=== PATIENT | male | born 1945 | race Caucasian/White ===

== ENCOUNTER 2018-08-11 07:16 | Inpatient (IN) | payer MEDICARE ==
[~2018-08-11] VITALS: Ht 188 cm; Wt 68.2 kg
[2018-08-11] MEDS ORDERED: NS IV 1000 ML 1,000 ML IV ONE ×2 (07:28→08:34)
[2018-08-11 07:35] LABS: BASOPHILS % (AUTO) 0 % (0-10); EOSINOPHILS % (AUTO) 0 % (0-10); HEMATOCRIT 42 % (40-54); LYMPHOCYTES # (AUTO) 1.2 X 10^3 (1.0-4.0); LYMPHOCYTES % (AUTO) 22 % (12-44); MEAN CORPUSCULAR HEMOGLOBIN 29 PG (25-34); MEAN CORPUSCULAR HGB CONC 34 G/DL (32-36); MEAN CORPUSCULAR VOLUME 87 FL (80-99); MEAN PLATELET VOLUME 11.7 FL (7.4-10.4); MONOCYTES # (AUTO) 0.3 X 10^3 (0.0-1.0); MONOCYTES % (AUTO) 6 % (0-12); NEUTROPHILS # (AUTO) 4.1 X 10^3 (1.8-7.8); NEUTROPHILS % (AUTO) 72 % (42-75); PLATELET COUNT 172 10^3/uL (130-400); RED CELL DISTRIBUTION WIDTH 14.8 % (10.0-14.5); WHITE BLOOD COUNT 5.6 10^3/uL (4.3-11.0)
[2018-08-11 07:55] LABS: ALANINE AMINOTRANSFERASE 9 U/L (0-55); ALKALINE PHOSPHATASE 33 U/L (40-136); BILIRUBIN,TOTAL 1.8 MG/DL (0.1-1.0); BUN/CREATININE RATIO 21; CALCIUM 10.2 MG/DL (8.5-10.1); CARBON DIOXIDE 15 MMOL/L (21-32); CHLORIDE 105 MMOL/L (98-107); CREATININE SERUM 1.28 MG/DL (0.60-1.30); GFR ESTIMATED 55; GLUCOSE 100 MG/DL (70-105); MAGNESIUM 2.2 MG/DL (1.8-2.4); POTASSIUM 4.2 MMOL/L (3.6-5.0); SODIUM 139 MMOL/L (135-145)
[2018-08-11 07:58] LABS: BILIRUBIN,URINE NEGATIVE (NEGATIVE); CLARITY,URINE CLEAR; COLOR,URINE YELLOW; GLUCOSE, URINE (UA) NEGATIVE (NEGATIVE); KETONES,URINE 4+ (NEGATIVE); LEUKOCYTE ESTERASE ,URINE 1+ (NEGATIVE); NITRITE,URINE NEGATIVE (NEGATIVE); PH,URINE 5 (5-9); PROTEIN,URINE 2+ (NEGATIVE); UROBILINOGEN,URINE 1 MG/DL (NORMAL)
--- NOTE | 2018-08-11 08:04 | ED General ---
General Chief Complaint: Altered Mental Status Stated Complaint: AMS Nursing Triage Note: ARRIVED VIA EMS. FOUND OUTSIDE HIS HOUSE IN [place]. STATES HE WALKED FROM [place] AND THOUGHT HE WAS IN [place]. PET WET AND COLD. WET CLOTHES IMMEDIATELY TAKEN OFF AND WARM BLANKET GIVEN. Nursing Sepsis Screen: No Definite Risk Source of Information: Patient Exam Limitations: No Limitations History of Present Illness Date Seen by Provider: Aug 11, 2018 Time Seen by Provider: 07:15 Initial Comments This 73-year-old gentleman presents to the emergency room via EMS after being found wandering around [place], [place] with a flashlight and stated he was looking for [address]. Someone contacted law enforcement who took him to the patient' s house. Orders were locked and nobody would answer the door. Law enforcement called EMS to bring him to the emergency room. It is rainy today and the patient's clothes are soaked. He is cool and shivering. He is alert but disoriented. He is conversational. He told EMS he walked from [place] and he believes he is in [place]. He reports he lives with his Josiane. He states she is trained to not answer the phone or come to the door without him. Patient reports only prostate problems for health history. He denies taking medications. His filling history shows finasteride and Flomax. He knows his date of but is disoriented to age, place. Patient's tympanic temperatures were 95.6 and 96.0. He is being given warm fluids and wrapped in warm blankets. His cold wet clothing was removed. His underwear was very darkly soiled with urine. He denies any symptoms except for his hips hurting because of all the walking he did. Allergies and Home Medications Allergies Coded Allergies: No Known Drug Allergies (Unverified , 08/11/18) Patient Home Medication List Home Medication List Reviewed: Yes Review of Systems Review of Systems Constitutional: see HPI EENTM: no symptoms reported Respiratory: no symptoms reported Cardiovascular: no symptoms reported Gastrointestinal: no symptoms reported Genitourinary: see HPI Musculoskeletal: no symptoms reported Skin: no symptoms reported Psychiatric/Neurological: See HPI Hematologic/Lymphatic: No Symptoms Reported Immunological/Allergic: no symptoms reported Past Swwenva-Uxlxtz-Rxgxns Hx Past Med/Social Hx: Reviewed and Corrections made Patient Social History Alcohol Use: Denies Use Recent Foreign Travel: No Contact w/Someone Who Travel: No Recent Infectious Disease Expo: No Past Medical History Surgeries: No Respiratory: No (none reported) Cardiac: No Neurological: No Reproductive Disorders: No Genitourinary: Yes Prostate Problems Gastrointestinal: No Musculoskeletal: No Endocrine: No HEENT: No Cancer: No Psychosocial: No Integumentary: No Physical Exam Vital Signs Vital Signs - First Documented 08/11/18 07:36 Temp 95.6 Pulse 90 Resp 16 B/P (MAP) 177/86 (116) Pulse Ox 99 O2 Delivery Room Air Capillary Refill : Less Than 3 Seconds Height, Weight, BMI Height: 5'10.00" Weight: 160lbs. oz. 72.665052qd; BMI Method:Estimated General Appearance: No Apparent Distress, WD/WN, Other (disheveled with soiled and wet clothing) HEENT: PERRL/EOMI, Normal ENT Inspection Neck: Normal Inspection, Non Tender Respiratory: Lungs Clear, Normal Breath Sounds, No Accessory Muscle Use, No Respiratory Distress Cardiovascular: Regular Rate, Rhythm, No Edema, No Murmur Gastrointestinal: Normal Bowel Sounds, Non Tender, Soft Back: Normal Inspection Extremity: Normal Inspection, No Pedal Edema Neurologic/Psychiatric: Alert, No Motor/Sensory Deficits, Normal Mood/Affect, wide area network administrator II-XII Norm as Tested, Other (disoriented and confused, improving with time) Skin: Normal Color, Warm/Dry Progress/Results/Core Measures Suspected Sepsis Recent Fever Within 48 Hours: No Infection Criteria Present: None New/Unexplained Altered Menta: No Sepsis Screen: No Definite Risk SIRS Temperature:95.6 Pulse: 90 Respiratory Rate: 16 Laboratory Tests 08/11/18 07:25: White Blood Count 5.6 Blood Pressure 177 /86 Mean: 116 Laboratory Tests 08/11/18 07:25: Creatinine 1.28, Platelet Count 172, Total Bilirubin 1.8H Results/Orders Lab Results Laboratory Tests Test 08/11/18 07:25 08/11/18 07:36 08/11/18 07:54 Range/Units White Blood Count 5.6 4.3-11.0 10^3/uL Red Blood Count 4.80 4.35-5.85 10^6/uL Hemoglobin 14.0 13.3-17.7 G/DL Hematocrit 42 40-54 % Mean Corpuscular Volume 87 80-99 FL Mean Corpuscular Hemoglobin 29 25-34 PG Mean Corpuscular Hemoglobin Concent 34 32-36 G/DL Red Cell Distribution Width 14.8 H 10.0-14.5 % Platelet Count 172 130-400 10^3/uL Mean Platelet Volume 11.7 H 7.4-10.4 FL Neutrophils (%) (Auto) 72 42-75 % Lymphocytes (%) (Auto) 22 12-44 % Monocytes (%) (Auto) 6 0-12 % Eosinophils (%) (Auto) 0 0-10 % Basophils (%) (Auto) 0 0-10 % Neutrophils # (Auto) 4.1 1.8-7.8 X 10^3 Lymphocytes # (Auto) 1.2 1.0-4.0 X 10^3 Monocytes # (Auto) 0.3 0.0-1.0 X 10^3 Eosinophils # (Auto) 0.0 0.0-0.3 10^3/uL Basophils # (Auto) 0.0 0.0-0.1 10^3/uL Sodium Level 139 135-145 MMOL/L Potassium Level 4.2 3.6-5.0 MMOL/L Chloride Level 105 98-107 MMOL/L Carbon Dioxide Level 15 L 21-32 MMOL/L Anion Gap 19 H 5-14 MMOL/L Blood Urea Nitrogen 27 H 7-18 MG/DL Creatinine 1.28 0.60-1.30 MG/DL Estimat Glomerular Filtration Rate 55 BUN/Creatinine Ratio 21 Glucose Level 100 70-105 MG/DL Calcium Level 10.2 H 8.5-10.1 MG/DL Corrected Calcium 10.2 H 8.5-10.1 MG/DL Magnesium Level 2.2 1.8-2.4 MG/DL Total Bilirubin 1.8 H 0.1-1.0 MG/DL Aspartate Amino Transf (AST/SGOT) 22 5-34 U/L Alanine Aminotransferase (ALT/SGPT) 9 0-55 U/L Alkaline Phosphatase 33 L 40-136 U/L Total Protein 8.0 6.4-8.2 GM/DL Albumin 4.0 3.2-4.5 GM/DL TSH [place] Testing 2.28 0.35-4.94 UIU/ML Serum Alcohol < 10 <10 MG/DL Urine Color YELLOW Urine Clarity CLEAR Urine pH 5 5-9 Urine Specific Nora 1.030 H 1.016-1.022 Urine Protein 2+ H NEGATIVE Urine Glucose (UA) NEGATIVE NEGATIVE Urine Ketones 4+ H NEGATIVE Urine Nitrite NEGATIVE NEGATIVE Urine Bilirubin NEGATIVE NEGATIVE Urine Urobilinogen 1 NORMAL MG/DL Urine Leukocyte Esterase 1+ H NEGATIVE Urine RBC (Auto) 3+ H NEGATIVE Urine RBC 5-10 H /HPF Urine WBC 5-10 H /HPF Urine Crystals NONE /LPF Urine Amorphous Sediment FEW BLAYNE URATES H /LPF Urine Bacteria MODERATE H /HPF Urine Casts NONE /LPF Urine Mucus LARGE H /LPF Urine Culture Indicated YES Urine Opiates Screen NEGATIVE NEGATIVE Urine Oxycodone Screen NEGATIVE NEGATIVE Urine Methadone Screen NEGATIVE NEGATIVE Urine Propoxyphene Screen NEGATIVE NEGATIVE Urine Barbiturates Screen NEGATIVE NEGATIVE Ur Tricyclic Antidepressants Screen NEGATIVE NEGATIVE Urine Phencyclidine Screen NEGATIVE NEGATIVE Urine Amphetamines Screen NEGATIVE NEGATIVE Urine Methamphetamines Screen NEGATIVE NEGATIVE Urine Benzodiazepines Screen NEGATIVE NEGATIVE Urine Cocaine Screen NEGATIVE NEGATIVE Urine Cannabinoids Screen NEGATIVE NEGATIVE Ammonia 17 11-32 UMOL/L Total Creatine Kinase 166 30-200 U/L My Orders Orders - DAMARI SAMAYOA MD Alcohol (08/11/18 07:28) Cbc With Automated Diff (08/11/18 07:28) Comprehensive Metabolic Panel (08/11/18 07:28) Drug Screen Stat (Urine) (08/11/18 07:28) Magnesium (08/11/18 07:28) Ua Culture If Indicated (08/11/18 07:28) Saline Lock/Iv-Start (08/11/18 07:28) Ns Iv 1000 Ml (Sodium Chloride 0.9%) (08/11/18 07:28) Thyroid Analyzer (08/11/18 07:33) Creatine Kinase (08/11/18 08:07) Ammonia (08/11/18 08:09) Urine Culture (08/11/18 07:36) Ceftriaxone For Iv Use (Rocephin For I (08/11/18 08:30) Ns Iv 500 Ml (Sodium Chloride 0.9%) (08/11/18 08:22) Saline Lock/Iv-Start (08/11/18 08:34) Ns Iv 1000 Ml (Sodium Chloride 0.9%) (08/11/18 08:34) Ct Head Wo (08/11/18 10:48) Medications Given in ED Current Medications Medications Dose Ordered Sig/Radha Route Start Time Stop Time Status Last Admin Dose Admin Ceftriaxone Sodium 1000 mg/ Sterile Water 10 ml @ 200 mls/hr ONCE ONCE IV 08/11/18 08:30 08/11/18 08:32 DC 08/11/18 08:37 200 MLS/HR Sodium Chloride 1,000 ml @ 0 mls/hr Q0M ONCE IV 08/11/18 07:28 08/11/18 07:30 DC 08/11/18 07:37 1,000 MLS/HR Sodium Chloride 1,000 ml @ 0 mls/hr Q0M ONCE IV 08/11/18 08:34 08/11/18 08:36 DC 08/11/18 08:37 1,000 MLS/HR Vital Signs/I&O 08/11/18 07:36 Temp 95.6 Pulse 90 Resp 16 B/P (MAP) 177/86 (116) Pulse Ox 99 O2 Delivery Room Air Capillary Refill : Less Than 3 Seconds Blood Pressure Mean: 116 Progress Note #1: Time: 08:24 Progress Note Patient was found to have a urinary tract infection and 4+ ketones in his urine. He received about 400 mL of saline by EMS. A liter of warm saline was administered in the ER. We will add another 500 mL due to the high ketones in his urine. Rocephin will be given for urinary tract infection identified on urinalysis. We have contacted a family friend who is going to come visit with the patient. Patient seems to have more brisk mentation now after being warmed and hydrated. Patient also states he sees Dr. Bean and takes 2 medications for his prostate. Progress Note #2: Time: 11:54 Progress Note Patient received Rocephin for treatment of urinary tract infection. Patient added to his history that he recently has fallen over his cats. CT of the head was added to his workup. No acute injuries were found on CT. Patient's friends and police went to the home and found patient's there. The home is in poor condition. They recommended the come to the hospital to be evaluated but she declined. Patient is still confused and not back to baseline according to his friends. Case has been discussed with Dr. Gonsalves who presented to the emergency room to assess the patient. He will be admitted with continued hydration and treatment for urinary tract infection and a psychiatric social worker consult. Temperature improved to 99. Diagnostic Imaging Diagonstic Imaging: CT Plain Films/CT/US/NM/MRI: head Comments CT head viewed by me and report reviewed. See report below: NAME: SHABANA MCGOVERN [facility] REC#: [id number] PT STATUS: REG ER : 1945 PHYSICIAN: DAMARI SAMAYOA MD ADMIT DATE: 08/11/18/ER Draft Date of Exam:08/11/18 CT HEAD WO PROCEDURE: CT head without contrast. TECHNIQUE: Multiple contiguous axial images were obtained through the brain without the use of intravenous contrast. Auto Exposure Controls were utilized during the CT exam to meet ALARA standards for radiation dose reduction. INDICATION: Altered level of consciousness and altered mental status. No comparison available. FINDINGS: There are prominent extra-axial spaces which are of low density and appears reflective of the subarachnoid space secondary to volume loss. There are no CT findings of acute or hyperdense intracranial hemorrhage. There is no mass effect or shift. There is no hydrocephalus. 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 There is no abnormal low density within the basal ganglia. There is no territorial loss of delgado-white differentiation. Posterior fossa demonstrates volume loss and is otherwise unremarkable. The basilar cisterns are patent. The mastoid air cells appear clear. There is chronic appearing and partially calcified opacification of the right maxillary sinus. The orbital contents unremarkable. There is no acute or suspicious calvarial abnormality. IMPRESSION: 1. Global volume loss without CT evidence of an acute intracranial abnormality. 2. Chronic appearing right maxillary sinusitis. Dictated on workstation # [id number] Dict: 08/11/18 1115 Trans: 08/11/18 1131 [id number] Interpreted by: ALEKSANDER FARIAS MD Departure Communication (Admissions) Time/Spoke to Admitting Phy: 10:45 Dr. Gonsalves Impression Primary Impression: Confusion Additional Impressions: Dehydration Hypothermia Qualified Codes: T68.XXXA - Hypothermia, initial encounter Urinary tract infection Qualified Codes: N39.0 - Urinary tract infection, site not specified Disposition: ADMITTED INPATIENT Condition: Improved Admissions Decision to Admit Reason: Admit from ER (General) Decision to Admit/Date: Aug 11, 2018 Time/Decision to Admit Time: 10:45 Departure-Patient Inst. Referrals: NO,LOCAL PHYSICIAN (PCP/Family) Primary Care Physician DAMARI SAMAYOA MD Aug 11, 2018 08:04
[2018-08-11 08:10] LABS: AMPHETAMINE SCREEN, URINE NEGATIVE (NEGATIVE); BARBITURATE SCREEN URINE NEGATIVE (NEGATIVE); BENZODIAZEPINES SCREEN URINE NEGATIVE (NEGATIVE); CANNABINOID SCREEN, URINE NEGATIVE (NEGATIVE); COCAINE SCREEN URINE NEGATIVE (NEGATIVE); METHADONE STAT NEGATIVE (NEGATIVE); METHAMPHETAMINE SCREEN URINE S NEGATIVE (NEGATIVE); OPIATE SCREEN URINE NEGATIVE (NEGATIVE); OXYCODONE STAT NEGATIVE (NEGATIVE); PROPOXYPHENE STAT NEGATIVE (NEGATIVE); TRICYCLIC ANTIDEPRESSANTS SCRE NEGATIVE (NEGATIVE)
--- NOTE | 2018-08-11 08:10 | NUR ---
PT STATES HE HAS TWO CHILDREN BUT UNALBE TO PROVIDE A NAME OR NUMBER. ALSO TOLD ME HIS LIVES AT THE HOME. ATTEMPT TO CALL THE NUMBER LISTED FOR HIS ET PHONE HAS BEEN DISCONNECTED. CONTACTED A MAN BY THE NAME OF ELIZABETH PANCHO WHO STATES HE KNOWS THE PT AND WILL COME TO THE ER. CONTACTED THE [employer] WHO STATES PATIENTS IS . THEY HAVE THE NAME OV ADRIANA MCGOVERN WHO IS HIS DAUGHTER IN [place] AND THEY HAVE CONTACTED [place] [employer] WHO IS TRYING TO LOCATE THE DAUGHTER.
[2018-08-11 08:14] LABS: AMORPHOUS SEDIMENT,UR FEW AMOR URATES /LPF; BACTERIA,URINE MODERATE /HPF
[2018-08-11] MEDS ORDERED: NS IV 500 ML 500 ML IV ONE (08:22)
[2018-08-11 08:25] LABS: AMMONIA 17 UMOL/L (11-32); CREATINE KINASE 166 U/L (30-200)
[2018-08-11] MEDS ORDERED: cefTRIAXone FOR IV USE 1,000 MG in WATER (STERILE) FOR INJECTION 10 ML IV ONE (08:30)
--- NOTE | 2018-08-11 08:30 | NUR ---
ELIZABETH DELEON AND HIS ARE HERE. THEY STATE THAT THE PT'S IS NOT UNLESS SHE JUST RECENTLY . [facility] CONTACTED AGAIN AND NOTIFIED OF THIS INFORMATION. ASKED THEM AGAIN TO DO A WELL PERSON CHECK ON THE AT THE HOME.
--- NOTE | 2018-08-11 09:20 | NUR ---
BRIANA BAILEYT HERE.
--- NOTE | 2018-08-11 09:35 | NUR ---
FRIENDS LEFT AND FOLLOWED POLICE TO THE PT'S HOME.
--- NOTE | 2018-08-11 10:11 | NUR ---
DR IN ROOM WITH PT AT THIS TIME.
--- NOTE | 2018-08-11 10:35 | NUR ---
DR NEELY HERE TO SEE PT.
--- NOTE | 2018-08-11 10:55 | History & Physical-Hospitalist ---
History of Present Illness HPI/Chief Complaint Pt is a 73yoCM who presented to the ER via EMS after being found wondering outside in the rain. Per report from ER doctor he was very confused when he arrived and unable to give much history but has been clearing. His story is still somewhat limited but he was able to tell me that he was out in the rain for hours. He is unsure why. He believes he was out there for hours. He was reported to police by a stranger for wandering with a flashlight. He believes he 's fallen 5-6x time tripping over his cats as well. He doesn't think he hurt his head when he fell. He is otherwise unable to tell me any other pertinent history. Family states he is still not back to baseline. Source: patient Date Seen 08/11/18 Time Seen by a Provider: 10:47 Attending Physician Mayda Gonsalves PCP No,Local Physician Referring Physician Date of Admission Home Medications & Allergies Home Medications Reviewed patient Home Medication Reconciliation performed by pharmacy medication reconciliations planning technician and/or nursing. Patients Allergies have been reviewed. Allergies Allergies Coded Allergies No Known Drug Allergies (Unverified08/11/18) Past Cqlqawz-Ufents-Vlksny Hx Past Med/Social Hx: Reviewed Nursing Past Med/Soc Hx Patient Social History Marrital Status: Alcohol Use: Past History Recreational Drug Use: No Smoking Status: Never a Smoker Recent Foreign Travel: No Contact w/other who traveled: No Recent Infectious Disease Expo: No Past Medical History Surgeries: Orthopedic Genitourinary: Prostate Problems Family History Reviewed Nursing Family Hx No Pertinent Family Hx Review of Systems ROS-Unable to Obtain: Confusion Constitutional: see HPI Physical Exam Physical Exam Vital Signs Vital Signs - First Documented 08/11/18 08/11/18 07:36 13:26 Temp 95.6 Pulse 90 Resp 16 B/P (MAP) 177/86 (116) Pulse Ox 99 O2 Delivery Room Air FiO2 21 Capillary Refill : Less Than 3 Seconds Height, Weight, BMI Height: 5'10.00" Weight: 160lbs. oz. 72.399781gs; BMI Method:Estimated General Appearance: No Apparent Distress, Chronically ill HEENT: PERRL/EOMI, Moist Mucous Membranes; No Scleral Icterus (L), No Scleral Icterus (R) Neck: Supple Respiratory: Lungs Clear, No Accessory Muscle Use, No Respiratory Distress Cardiovascular: Regular Rate, Rhythm, No JVD, No Murmur Gastrointestinal: Normal Bowel Sounds, Non Tender, Soft Extremity: Normal Capillary Refill, No Calf Tenderness, No Pedal Edema Neurologic/Psychiatric: Alert, Other (oriented to person and place only) Skin: Normal Color, Warm/Dry; No Ecchymosis Results Results/Procedures Labs Laboratory Tests 08/12/18 03:05 Patient resulted labs reviewed. Imaging: Reviewed Imaging Report Assessment/Plan Admission Diagnosis Altered Mental Status Admission Status: Inpatient Order (span 2 midnights) Reason for Inpatient Admission: need for iv abx, monitoring for confusion Diagnosis/Problems Diagnosis/Problems (1) Urinary tract infection Status: Acute Assessment & Plan: Await cultures No sepsis criteria met lactic acid pending Qualifiers: Urinary tract infection type: site unspecified Hematuria presence: without hematuria Qualified Codes: N39.0 - Urinary tract infection, site not specified (2) Confusion Status: Acute Assessment & Plan: Unsure of baseline Oriented to person and place currently but not the last 24 hours Monitor in ICU (3) Falls Status: Acute Assessment & Plan: 5-6 falls per patient On no blood thinners CT head shows no acute process Qualifiers: Encounter type: initial encounter Qualified Codes: W19.XXXA - Unspecified fall, initial encounter (4) Hypothermia Status: Resolved Assessment & Plan: Resolved now Likely due to environmental exposure Qualifiers: Encounter type: initial encounter Qualified Codes: T68.XXXA - Hypothermia , initial encounter Resolution Date/Time: 08/12/18 @ 09:18 MAYDA GONSALVES MD Aug 11, 2018 10:55
[2018-08-11] MEDS ORDERED: MILK OF MAGNESIA 400 MG/5 ML 30 ML UDC PO PRN (11:15)
[2018-08-11] MEDS ORDERED: ACETAMINOPHEN 325 MG TABLET PO PRN (11:15)
[2018-08-11] MEDS ORDERED: ONDANSETRON 4 MG/2 ML (SDV) Z0FRAN IV PRN (11:15)
[2018-08-11] MEDS ORDERED: ANTACID SUSP 30 ML UDC (MYLANTA) PO PRN (11:15)
[2018-08-11] MEDS ORDERED: MELATONIN 3 MG TABLET PO PRN (11:15)
[2018-08-11] MEDS ORDERED: BENZONATATE 100 MG (TESSALON) CAPSULE PO PRN (11:15)
--- NOTE | 2018-08-11 11:32 | Diagnostic Imaging Report ---
PROCEDURE: CT head without contrast. TECHNIQUE: Multiple contiguous axial images were obtained through the brain without the use of intravenous contrast. Auto Exposure Controls were utilized during the CT exam to meet ALARA standards for radiation dose reduction. INDICATION: Altered level of consciousness and altered mental status. No comparison available. FINDINGS: There are prominent extra-axial spaces which are of low density and appears reflective of the subarachnoid space secondary to volume loss. There are no CT findings of acute or hyperdense intracranial hemorrhage. There is no mass effect or shift. There is no hydrocephalus. 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 There is no abnormal low density within the basal ganglia. There is no territorial loss of delgado-white differentiation. Posterior fossa demonstrates volume loss and is otherwise unremarkable. The basilar cisterns are patent. The mastoid air cells appear clear. There is chronic appearing and partially calcified opacification of the right maxillary sinus. The orbital contents unremarkable. There is no acute or suspicious calvarial abnormality. IMPRESSION: 1. Global volume loss without CT evidence of an acute intracranial abnormality. 2. Chronic appearing right maxillary sinusitis. Dictated by: Dictated on workstation # [id number]
--- NOTE | 2018-08-11 11:44 | NUR ---
REPORT AND CARE TURNED OVER TO DOUG KINGSLEY.
[2018-08-11 12:50] VITALS: BP 175/81
--- NOTE | 2018-08-11 12:50 | NUR ---
SHABANA MCGOVERN admitted to room CU12-1, with an admitting diagnosis of UTI,AMS, on 08/11/18 from ER via [facility], accompanied by STAFF.SHABANA MCGOVERN introduced to surroundings, call light, bed controls, phone, TV, temperature control, lights, meal times, smoking policy, visitor policy, side rail policy, bathrooms and showers. Patient Rights given to patient in the handbook. SHABANA MCGOVERN verbalizes understanding that [facility] is not responsible for the loss or damage to any personal effects or valuables that are kept in the patients posession during their hospitalization. The following Patient Care Plans were discussed with the PT: Discharge Planning, PAIN,INFECTION, and KNOWLEDGE DEFICIT:UTI. SHABANA MCGOVERN verbalizes understanding of Interdisciplinary Patient Education. Patient and family were informed about the Rapid Response Team and its purpose.
[2018-08-11 13:00] VITALS: BP 175/78
[2018-08-11] MEDS ORDERED: CATHETER FLUSH 10 ML SYR IV PRN (13:00)
[2018-08-11] MEDS: NS IV 1000 ML 1,000 ML IV SCH ×2 (13:21→21:04)
[2018-08-11 13:26] VITALS: BP 177/86
[2018-08-11] MEDS ORDERED: FLU QUADRIvalent (5+ YOA) 2018-2019 (AFLURIA) 0.5 ML IM ONE (13:30)
[2018-08-11] MEDS ORDERED: RT-ALBUTEROL/IPRATROPIUM 3 ML (DUONEB) VIAL INH PRN (13:45)
[2018-08-11 16:00] VITALS: BP 146/80
[2018-08-11 19:30] VITALS: BP 147/78
[2018-08-11] MEDS ORDERED: NITROGLYCERIN 2% OINT 1 GM UNIT DOSE PACKET TOP PRN (20:45)
[2018-08-11 23:30] VITALS: BP 165/78
[2018-08-12 03:15] VITALS: BP 130/78
[2018-08-12 03:43] LABS: HEMOGLOBIN 11.5 G/DL (13.3-17.7); MEAN PLATELET VOLUME 12.1 FL (7.4-10.4); RED CELL DISTRIBUTION WIDTH 14.6 % (10.0-14.5); WHITE BLOOD COUNT 4.6 10^3/uL (4.3-11.0)
[2018-08-12 04:03] LABS: BUN/CREATININE RATIO 26; CALCIUM 8.6 MG/DL (8.5-10.1); CARBON DIOXIDE 20 MMOL/L (21-32); CHLORIDE 111 MMOL/L (98-107); CREATININE SERUM 0.84 MG/DL (0.60-1.30); GFR ESTIMATED > 60; GLUCOSE 95 MG/DL (70-105); POTASSIUM 3.7 MMOL/L (3.6-5.0); SODIUM 139 MMOL/L (135-145)
--- NOTE | 2018-08-12 05:55 | Pulmonary Consultation ---
History of Present Illness History of Present Illness Date of Consultation 08/12/18 05:52 Date of Admission Allergies and Home Medications Allergies Coded Allergies: No Known Drug Allergies (Unverified , 08/11/18) Home Medications Unable to Obtain Active Prescriptions or Reported Meds Past Bpipmwe-Mbiecx-Wciysp Hx Past Med/Social Hx: Reviewed and Corrections made Patient Social History Alcohol Use: Denies Use Recreational Drug Use: No Smoking Status: Never a Smoker Past Medical History Surgeries: No Orthopedic Respiratory: No (none reported) Cardiac: No Neurological: No Reproductive Disorders: No Genitourinary: Yes Prostate Problems Gastrointestinal: No Musculoskeletal: No Endocrine: No HEENT: No Cancer: No Psychosocial: No Integumentary: No Family Medical History Reviewed Nursing Family Hx Osteoporosis 19 MOTHER No Pertinent Family Hx Sepsis Event Evaluation Height, Weight, BMI Height: 6'2.00" Weight: 150lbs. 7.0oz. 68.155161sb; 19.3 BMI Method:Estimated Exam Exam Vital Signs Date Time Temp Pulse Resp B/P (MAP) Pulse Ox O2 Delivery O2 Flow Rate FiO2 08/12/18 03:15 99.2 48 16 130/78 (95) 98 Room Air 08/12/18 01:00 55 08/11/18 23:30 99.0 64 20 165/78 (107) 98 Room Air 08/11/18 19:35 100 Room Air 08/11/18 19:30 99.8 68 16 147/78 (101) 100 Room Air 08/11/18 19:18 Room Air 08/11/18 19:00 69 08/11/18 16:19 77 08/11/18 16:07 Room Air 08/11/18 16:00 99.1 79 12 146/80 (102) 100 Room Air 08/11/18 13:26 90 99 21 08/11/18 13:00 78 175/78 (110) Room Air 08/11/18 12:50 100 Room Air 08/11/18 12:50 98.8 87 16 175/81 100 Room Air 08/11/18 12:46 67 18 150/73 (98) 100 Room Air 08/11/18 07:36 95.6 90 16 177/86 (116) 99 Room Air I & O 08/12/18 07:00 Intake Total 1830 ml Output Total 825 ml Balance 1005 ml Height & Weight Height: 6'2.00" Weight: 150lbs. 7.0oz. 68.124493mb; 19.3 BMI Method:Estimated General Appearance: No Apparent Distress, WD/WN, Other (disheveled with soiled and wet clothing) HEENT: PERRL/EOMI, Normal ENT Inspection Neck: Normal Inspection, Non Tender Respiratory: Lungs Clear, Normal Breath Sounds, No Accessory Muscle Use, No Respiratory Distress Cardiovascular: Regular Rate, Rhythm, No Edema, No Murmur Capillary Refill: Less Than 3 Seconds Extremity: Normal Inspection, No Pedal Edema Neurologic/Psychiatric: Alert, No Motor/Sensory Deficits, Normal Mood/Affect, cruise guide II-XII Norm as Tested, Other (disoriented and confused, improving with time) Skin: Normal Color, Warm/Dry Results Lab Laboratory Tests 08/11/18 07:25 08/12/18 03:05 Assessment/Plan Assessment/Plan UTI -Rocephin S/p Fall Hypothermia -Improved Metabolic encephalopathy Metabolic acidosis -IVF -Monitor Bradycardia PT probably needs ECF CARLENE ARREDONDO DO Aug 12, 2018 05:55
[2018-08-12 08:17] VITALS: BP 182/84
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
[2018-08-12] MEDS: NS IV 1000 ML 1,000 ML IV SCH (09:21)
[2018-08-12] MEDS: cefTRIAXone FOR IV USE 1,000 MG in WATER (STERILE) FOR INJECTION 10 ML IV SCH (09:21)
[2018-08-12 11:12] VITALS: BP 168/93
[2018-08-12 15:33] VITALS: BP 179/87
[2018-08-12 19:55] VITALS: BP 164/88
[2018-08-13] VITALS: BP 144/80
[2018-08-13 04:00] VITALS: BP 160/96
[2018-08-13 05:32] VITALS: BP 160/96
--- NOTE | 2018-08-13 05:48 | Pulmonary Progress Note ---
Subjective Time Seen by a Provider: 05:47 Subjective/Events-last exam Pt appears to be doing better. Sepsis Event Evaluation Height, Weight, BMI Height: 6'2.00" Weight: 150lbs. 7.0oz. 68.869517in; 19.3 BMI Method:Estimated Exam Exam Vital Signs Date Time Temp Pulse Resp B/P (MAP) Pulse Ox O2 Delivery O2 Flow Rate FiO2 08/13/18 00:00 98.3 57 20 144/80 (101) 97 Room Air 08/12/18 20:00 Room Air 08/12/18 19:55 98.0 62 20 164/88 (113) 100 Room Air 08/12/18 15:33 98.9 54 20 179/87 (117) 98 Room Air 08/12/18 13:27 54 08/12/18 13:27 54 08/12/18 11:12 99.4 61 23 168/93 (118) 100 Room Air 08/12/18 08:42 99 Room Air 08/12/18 08:17 99.0 69 20 182/84 (116) 99 Room Air 08/12/18 07:01 45 I & O 08/13/18 07:00 Intake Total 2400 ml Output Total 1325 ml Balance 1075 ml Height & Weight Height: 6'2.00" Weight: 150lbs. 7.0oz. 68.286695an; 19.3 BMI Method:Estimated General Appearance: No Apparent Distress, WD/WN, Other (disheveled with soiled and wet clothing) Respiratory: Lungs Clear, No Accessory Muscle Use, No Respiratory Distress Cardiovascular: Regular Rate, Rhythm, No Edema, No Murmur Capillary Refill: Less Than 3 Seconds Neurologic/Psychiatric: Alert, Other (disoriented and confused, hallucinating) Results Lab Laboratory Tests 08/11/18 07:25 08/12/18 03:05 Assessment/Plan Assessment/Plan UTI -Rocephin S/p Fall Metabolic encephalopathy Metabolic acidosis -IVF -Monitor Bradycardia PT probably needs ECF Pt is doing better. Will transfer to 4th floor. I am going to sign off after pt transfers to 4th. Please call with any questions or concerns. CARLENE ARREDONDO DO Aug 13, 2018 05:48
--- NOTE | 2018-08-13 09:25 | Speech Therapy Progress Note ---
Therapy Progress Note ST went to the patient's room this am for a dysphagia evaluation. Upon entering the room he was finishing his breakfast without any s/s of aspiration. No Bedside Dysphagia Evaluation will be performed at this time. DIONNE LENTZ Aug 13, 2018 09:25
--- NOTE | 2018-08-13 10:00 | NUR ---
REPORT RECEIVED FROM ANA KINGSLEY, WILL CONTINUE TO MONITOR. PATIENT IN ROOM, ORIENTED TO ROOM, CALL LIGHT WITHIN REACH.
[2018-08-13] MEDS: cefTRIAXone FOR IV USE 1,000 MG in WATER (STERILE) FOR INJECTION 10 ML IV SCH (10:06)
[2018-08-13] MEDS ORDERED: TAMS0.4C98 PO (10:21)
[2018-08-13] MEDS ORDERED: FINA5TAB6 PO (10:21)
--- NOTE | 2018-08-13 10:27 | NUR ---
CALLED JAKE GOMEZ FOR A MEDICATION LIST OF RECENTLY FILLED MEDS WELL HAD A LIST SENT OVER FROM DR. MEEHAN'S OFFICE. JAKE FILLED: 07-25-18 FINASTERIDE 5MG HS #90 07-25-18 TAMSULOSIN 0.4MG DAILY #90 DR. MEEHAN'S OFFICE LIST WAS THE SAME. PATIENT STATES HE DOES NOT TAKE ANYTHING OTC.
[2018-08-13 11:15] VITALS: BP 145/98
--- NOTE | 2018-08-13 11:19 | Physical Therapy Evaluation ---
PT Evaluation-General Medical Diagnosis Admission Date Aug 11, 2018 at 14:19 Medical Diagnosis: UTI Onset Date: Aug 11, 2018 Therapy Diagnosis Therapy Diagnosis: debility/weakness Height/Weight Height (Feet): 6 Height (Inches): 2.00 Weight (Pounds): 150 Weight (Ounces): 7.0 Precautions Precautions/Isolations: Fall Prevention, Standard Precautions Weight Bear Status Right Lower Extremity: Right Weight Bearing/Tolerated Left Lower Extremity: Left Weight Bearing/Tolerated Referral Physician: Brina Reason for Referral: Evaluation/Treatment Medical History Current History found outside in the rain, lost in [place], [place]/EMS issued/patient was found hypothermic Reviewed History: Yes Social History Home: Single Level Current Living Status: Spouse Prior/Core FIM Prior Level of Function Therapy Code Descriptions/Definitions Functional [place] Measure: 0=Not Assessed/NA 4=Minimal Assistance 1=Total Assistance 5=Supervision or Setup 2=Maximal Assistance 6=Modified [place] 3=Moderate Assistance 7=Complete [place] Therapy Quality Codes: 6 Independent with activity with or without an assistive device 5 Patient requires set up or clean up by helper. Patient completes activity by themselves 4 Supervision or touching assist (CGA). [place] provide cues , steadying assist 3 The helper provides less than half the effort to complete the activity 2 The helper provides more than half the effort to complete the activity 1 Dependent. The helper does all the effort to complete an activity 7 Patient refused to complete or attempt activity 9 The patient did not perform the activity before the current illness or injury 88 Not attempted due to Medical conditions or safety concerns Functional Abilities and Goals: Independent: Patient completed the activities by him/herself, with or without an assistive device, with no assistance from a helper. Needed Some Help: Patient needed partial assistance from another person to complete activities. Dependent: A helper completed the activities for the patient. Unknown: Not Applicable: Bed Mobility: 7 Transfers (B,C,W/C) (FIM): 7 Gait: 7 Indoor Mobility (Ambulation): Independent Stairs: Independent Prior Devices Use: None PT Evaluation-Current Subjective Patient agrees to PT. Appears to be confused, however, pleasant. Pain Numeric Pain Scale: 0-No Pain Location: No Pain Reported Objective Patient Orientation: Confused Problem Solving: Poor ROM/Strength ROM Lower Extremities bilateral LE WFL Strength Lower Extremities bilateral LE 3+/5 grossly with noted severely diminished proprioception/ coordination Integumentary/Posture Integumentary refer to nursing notes Bowel Incontinence: No Bladder Incontinence: No Posture WFL Neuromuscular (Tone, Coordination, Reflexes) severely diminished coordination Sensory Vision: Wears Glasses Hearing: Functional Sensation Right Lower Extremit: Impaired Sensation Left Lower Extremity: Impaired Transfers Therapy Code Descriptions/Definitions Functional [place] Measure: 0=Not Assessed/NA 4=Minimal Assistance 1=Total Assistance 5=Supervision or Setup 2=Maximal Assistance 6=Modified [place] 3=Moderate Assistance 7=Complete [place] Transfers (B, C, W/C) (FIM): 4 Scootin Rollin Supine to/from Sit: 5 Sit to/from Stand: 4 Gait Mode of Locomotion: Walk Anticipated Mode of Locomotion: Walk Gait (FIM): 4 Distance (FIM): 3=150 ft Distance: 200' Gait Level of Assist: 4 Gait Persons Needed: 1 Gait Assistive Device: FWW Comments/Gait Description noted diminished proprioception and spacial awareness with step length and position/noted left LE length discrepancy. (not measured) Balance Sitting Static: Fair Sitting Dynamic: Fair Standing Static: Fair Standing Dynamic: Fair Assessment/Needs 73 y.o. male, will benefit from skilled PT to address functional strength and mobility to improve current LOF. Patient is pleasantly confused and is unaware of safety concerns. Rehab Potential: Fair PT Shelter Goals Quill Layer Goals PT Quill Layer Goals Time Frame: Sep 01, 2018 Transfers (B,C,W/C) (FIM): 6 Gait (FIM): 6 Gait distance (FIM): 3=150 ft Distance: >300' Gait Level of Assist: 6 Gait Assistive Device: FWW PT Plan Problem List Problem List: Activity Tolerance, Functional Strength, Safety, Balance, Gait, Transfer, Bed Mobility Treatment/Plan Treatment Plan: Continue Plan of Care Treatment Plan: Bed Mobility, Education, Functional Activity Allison, Functional Strength, Gait, Safety, Therapeutic Exercise, Transfers Treatment Duration: Sep 01, 2018 Frequency: 6 times per week Estimated Hrs Per Day: .25 hour per day Patient and/or Family Agrees t: Yes Safety Risks/Education Patient Education: Safety Issues Teaching Recipient: Patient Teaching Methods: Discussion Response to Teaching: Reinforcement Needed Discharge Recommendations Therapy D/C Recommendations: Usp Placement, Group Home (TCU/NH) Time/GCodes Time In: 940 Time Out: 959 Total Billed Treatment Time: 19 Total Billed Treatment 1 visit EVModC 19 min NISHANT YUSUF PT Aug 13, 2018 11:18
--- NOTE | 2018-08-13 13:46 | Occupational Therapy Eval ---
OT Evaluation-General/PLF Medical Diagnosis Admission Date Aug 11, 2018 at 14:19 Medical Diagnosis: UTI Onset Date: Aug 11, 2018 Therapy Diagnosis Therapy Diagnosis: Weakness Height/Weight Height (Feet): 6 Height (Inches): 2.00 Weight (Pounds): 150 Weight (Ounces): 7.0 Precautions Precautions/Isolations: Fall Prevention, Standard Precautions Safety Interventions: Bed Exit Alarm, Reorient-Attempt Weight Bear Status Weight Bearing Restriction: Full Weight Bearing Location Restriction: L LE, R LE Referral Physician: Brina Referral Reason: Activity Tolerance, Self Care, Evaluation/Treatment, Strengthening/ROM Medical History Additional Medical History PMHx Dehydration,,confusion,, UTI, Hypothermia, , Falls, Current History 73 yrs old , , W/M brought to ER via EMS as they found him wandering in rain alone in night confused . Reviewed History: Yes Social History Home: Single Level Current Living Status: Spouse ADL-Prior Level of Function Therapy Code Descriptions/Definitions Functional [place] Measure: 0=Not Assessed/NA 4=Minimal Assistance 1=Total Assistance 5=Supervision or Setup 2=Maximal Assistance 6=Modified [place] 3=Moderate Assistance 7=Complete [place] Therapy Quality Codes: 6 Independent with activity with or without an assistive device 5 Patient requires set up or clean up by helper. Patient completes activity by themselves 4 Supervision or touching assist (CGA). [place] provide cues , steadying assist 3 The helper provides less than half the effort to complete the activity 2 The helper provides more than half the effort to complete the activity 1 Dependent. The helper does all the effort to complete an activity 7 Patient refused to complete or attempt activity 9 The patient did not perform the activity before the current illness or injury 88 Not attempted due to Medical conditions or safety concerns Functional Abilities and Goals: Independent: Patient completed the activities by him/herself, with or without an assistive device, with no assistance from a helper. Needed Some Help: Patient needed partial assistance from another person to complete activities. Dependent: A helper completed the activities for the patient. Unknown: Not Applicable: ADL PLOF Comments Pt was Independent in IADLs & all self care tasks & ambulation. Self Care: Independent Functional Cognition: Needed Some Help Drive Self: No OT Current Status Subjective Pt in his rooms Shower. Allowed therapist to assessed & help him in shower. Pain Numeric Pain Scale: 0-No Pain Location: No Pain Reported Mental Status/Objective Patient Orientation: Person, Place Attachments: IV, Saline Lock Current Glasses/Contacts: No Hearing Aids: Yes Dentures/Partials: No Hand Dominance: Right Upper Extremity ROM WFL Upper Extremity Coordination Intact Upper Extremity Sensation Intact Upper Extremity Strength MS in [facility] -08/17 grossly graded. ADL-Treatment ADL-Current Pt Participated in shower in standing position , Pt mildly confused , shower with warm water , washed only neck below body , did'nt wash face, hairs & back .Pt has to reminded to wash face, back & hairs . Pt needs min A in shower, dressing hospital gown . MS in [facility] -08/17 grossly graded. Fair + hand field nurse case manager. Unsteady standing balance while he walk . high risk of fall Therapy Code Descriptions/Definitions Functional [place] Measure: 0=Not Assessed/NA 4=Minimal Assistance 1=Total Assistance 5=Supervision or Setup 2=Maximal Assistance 6=Modified [place] 3=Moderate Assistance 7=Complete [place] Therapy Quality Codes: 6 Independent with activity with or without an assistive device 5 Patient requires set up or clean up by helper. Patient completes activity by themselves 4 Supervision or touching assist (CGA). [place] provide cues , steadying assist 3 The helper provides less than half the effort to complete the activity 2 The helper provides more than half the effort to complete the activity 1 Dependent. The helper does all the effort to complete an activity 7 Patient refused to complete or attempt activity 9 The patient did not perform the activity before the current illness or injury 88 Not attempted due to Medical conditions or safety concerns Eating (FIM): 6 Grooming (FIM): 5 Bathing (FIM): 4 Bathing Location: L Arm, R Arm, L Upper Leg, R Upper Leg, L Lower Leg ( including foot), R Lower Leg (including foot), Chest, Abdomen, Buttocks, Perineal Area Upper Body Dressing (FIM): 5 Lower Body Dressing (FIM): 4 Toileting (FIM): 6 Transfers (B, C, W/C) (FIM): 5 Toilet/Commode Transfer (FIM): 5 Tub Transfer (FIM): 0 Shower Transfer (FIM): 5 Education OT Patient Education: Correct positioning, Safety issues Teaching Recipient: Patient Response to Teaching: Verbalize Understanding OT Short Term Goals Short Term Goals Time Frame: Aug 27, 2018 Additional Short Term Goals: 1-Demonstrate ADL Tasks, 2-Verbalize Understanding , 3-ImproveStrength/Allison 1=Demonstrate adherence to instructed precautions during ADL tasks. 2=Patient will verbalize/demonstrate understanding of assistive devices/ modifications for ADL. 3=Patient will improve strength/tolerance for activity to enable patient to perform ADL's. OT Senior Living Goals Senior Living Goals Time Frame: Sep 10, 2018 Eating (FIM): 7 Grooming(FIM): 6 Bathing(FIM): 6 Bathing Location: L Arm, R Arm, L Upper Leg, R Upper Leg, L Lower Leg ( including foot), R Lower Leg (including foot), Chest, Abdomen, Buttocks, Perineal Area Upper Body Dressing(FIM): 6 Lower Body Dressing(FIM): 6 Toileting(FIM): 6 Transfers (B,C,W/C) (FIM): 6 Toilet/Commode Transfer(FIM): 6 Tub Transfer(FIM): 0 Shower Transfer(FIM): 6 Additional Goals: 1-Demonstrate ADL Tasks, 2-Verbalize Understanding, 3- ImproveStrength/Allison 1=Demonstrate adherence to instructed precautions during ADL tasks. 2=Patient will verbalize/demonstrate understanding of assistive devices/ modifications for ADL. 3=Patient will improve strength/tolerance for activity to enable patient to perform ADL's. OT Education/Plan Problem List/Assessment Assessment: Decreased Activ Tolerance, Decreased Safety Aware, Decreased UE Strength, Dependent Transfers, Impaired Bed Mobility, Impaired Funct Balance, Impaired Self-Care Skills Discharge Recommendations Plan/Recommendations: Continue POC Therapy D/C Recommendations: Home w/ Family Support Equpiment Recommendations-D/C: Extended Bath Bench, Extended Shower Sprayer, Fiberglass Roller Patient/Family Goals To return home Independently with spouse. Treatment Plan/Plan of Care Treatment,Training & Education: Yes Patient would benefit from OT for education, treatment and training to promote independence in ADL's, mobility, safety and/or upper extremity function for ADL' s. Plan of Care: ADL Retraining, Functional Mobility, UE Funct Exercise/Act, UE Neuromus Re-Ed/Coord Treatment Duration: Sep 10, 2018 Frequency: 5 times per week Estimated Hrs Per Day: .25 hour per day Agreement: Yes Rehab Potential: Good Time/GCodes Start Time: 11:25 Stop Time: 12:05 Total Time Billed (hr/min): 40 Billed Treatment Time 1, EVM 15 min, ADLs 25 min. Total 40 minutes. LATRICE PEÑA OT Aug 13, 2018 13:46
--- NOTE | 2018-08-13 14:19 | NUR ---
CM/SS Tej Riki(patient's brother, ) present at the hospital. He stated that the electricity is back on in the patient's home but that it does need a lot of cleaning. He reports that the patient does have a blank spot in one eye that messes with his vision and perception of depth. He had a General Durable Power of Toys Inspector form and had discussed it with the patient. Notary came up, copy of the form placed on client chart and copies made for the family.
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
[2018-08-13 16:00] VITALS: BP 153/77
[2018-08-13 20:30] VITALS: BP 148/80
[2018-08-14 00:15] VITALS: BP 143/78
[2018-08-14 04:45] VITALS: BP 156/87
[2018-08-14 08:00] VITALS: BP 153/89
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
[2018-08-14] MEDS: cefTRIAXone FOR IV USE 1,000 MG in WATER (STERILE) FOR INJECTION 10 ML IV SCH (09:56)
--- NOTE | 2018-08-14 10:12 | NUR ---
CM/SS spoke with the patient and discussed SNF. His preference was for [facility], referral sent.
[2018-08-14 12:00] VITALS: BP 144/85
--- NOTE | 2018-08-14 13:04 | Progress Note-Hospitalist ---
Progress Note Progress Notes/Assess & Plan Date Seen 08/14/18 Time Seen by Provider: 13:01 Assessment & Plan The patient is calm and seems happy today. He has been eating. Arrangements have been made and they will be transported to via [facility] tomorrow as a couple. He has no complaints at this time. Physical exam: He is pleasant but somewhat confused. Lungs are clear to auscultation. CV is regular without murmur. Impression: Dementia. 2. Untenable social situation. Plan: Transferred to via [facility] tomorrow. CHARLENE MELENDEZ MD Aug 14, 2018 13:04
--- NOTE | 2018-08-14 14:06 | Occupational Ther Daily Note ---
OT Current Status-Daily Note Subjective Pt in bed, alert, cooperative & agree for therapy. Pain Numeric Pain Scale: 0-No Pain Location: No Pain Reported Mental Status/Objective Patient Orientation: Person, Place Therapy Code Descriptions/Definitions Functional [place] Measure: 0=Not Assessed/NA 4=Minimal Assistance 1=Total Assistance 5=Supervision or Setup 2=Maximal Assistance 6=Modified [place] 3=Moderate Assistance 7=Complete [place] Attachments: IV ADL-Treatment Pt mod I in toileting, func transfers & supine to sit in bed. Pt participated in strengthening ex to BUE. completed 20 reps x 2 sets x 2 lbs wt flexion/ext of both elbows & shoulder , 30 reps with red theraband & 30 reps with hand gripper . Pt unsteady while standing. Eating (FIM): 6 Grooming (FIM): 6 Bathing (FIM): 0 Transfers (B, C, W/C) (FIM): 6 Toilet/Commode Transfer (FIM): 6 Tub Transfer(FIM): 0 Shower Transfer(FIM): 0 Education OT Patient Education: Correct positioning Teaching Recipient: Patient Teaching Methods: Demonstration Response to Teaching: Verbalize Understanding OT Short Term Goals Short Term Goals Time Frame: Aug 27, 2018 Additional Short Term Goals: 1-Demonstrate ADL Tasks, 2-Verbalize Understanding , 3-ImproveStrength/Allison 1=Demonstrate adherence to instructed precautions during ADL tasks. 2=Patient will verbalize/demonstrate understanding of assistive devices/ modifications for ADL. 3=Patient will improve strength/tolerance for activity to enable patient to perform ADL's. OT Residential Goals Dumpster Operator Goals Time Frame: Sep 10, 2018 Eating (FIM): 7 Grooming(FIM): 6 Bathing(FIM): 6 Bathing Location: L Arm, R Arm, L Upper Leg, R Upper Leg, L Lower Leg ( including foot), R Lower Leg (including foot), Chest, Abdomen, Buttocks, Perineal Area Upper Body Dressing(FIM): 6 Lower Body Dressing(FIM): 6 Toileting(FIM): 6 Transfers (B,C,W/C) (FIM): 6 Toilet/Commode Transfer(FIM): 6 Tub Transfer(FIM): 0 Shower Transfer(FIM): 6 Additional Goals: 1-Demonstrate ADL Tasks, 2-Verbalize Understanding, 3- ImproveStrength/Allison 1=Demonstrate adherence to instructed precautions during ADL tasks. 2=Patient will verbalize/demonstrate understanding of assistive devices/ modifications for ADL. 3=Patient will improve strength/tolerance for activity to enable patient to perform ADL's. OT Education/Plan Problem List/Assessment Assessment: Decreased Activ Tolerance, Decreased Safety Aware, Decreased UE Strength, Dependent Transfers, Impaired Bed Mobility, Impaired Funct Balance, Impaired Self-Care Skills Discharge Recommendations Plan/Recommendations: Continue POC Therapy D/C Recommendations: Home w/ Family Support Equpiment Recommendations-D/C: Extended Bath Bench, Extended Shower Sprayer, Rock Room Worker Patient/Family Goals To return home Independently. Treatment Plan/Plan of Care Patient would benefit from OT for education, treatment and training to promote independence in ADL's, mobility, safety and/or upper extremity function for ADL' s. Plan of Care: ADL Retraining, Functional Mobility, UE Funct Exercise/Act, UE Neuromus Re-Ed/Coord Treatment Duration: Sep 10, 2018 Frequency: 5 times per week Estimated Hrs Per Day: .25 hour per day Agreement: Yes Rehab Potential: Good Time/GCodes Start Time: 13:00 Stop Time: 13:13 Total Time Billed (hr/min): 13 Billed Treatment Time 1, Ex 13 minutes. LATRICE PEÑA OT Aug 14, 2018 14:06
[2018-08-14 15:39] VITALS: BP 132/60
[2018-08-14 16:31] VITALS: BP 132/60
[2018-08-15] VITALS: BP 164/86
[2018-08-15] MEDS: cefTRIAXone FOR IV USE 1,000 MG in WATER (STERILE) FOR INJECTION 10 ML IV SCH (08:38)
[2018-08-15 08:56] VITALS: BP 123/69
--- NOTE | 2018-08-15 08:57 | NUR ---
CM/SS [facility] accepted the patient and his for transfer this day to their facility. Completed the CARE assessment with the patient. Copy of CARE assessment sent to SELENE, [facility], and copy retained on the patient chart.
--- NOTE | 2018-08-15 10:00 | Physical Therapy Daily Note ---
PT Daily Note-Current Subjective Pt. up in recliner, pleasant and agrees to Rx. States during gait that he realizes he doesnt exactly know where he is in space stuart with his left foot and leg Pain Location: No Pain Reported Mental Status Patient Orientation: Person, Place Attachments: Other-See Comments (chair alarm) Transfers Therapy Code Descriptions/Definitions Functional Randolph Measure: 0=Not Assessed/NA 4=Minimal Assistance 1=Total Assistance 5=Supervision or Setup 2=Maximal Assistance 6=Modified [place] 3=Moderate Assistance 7=Complete [place] Therapy Quality Codes: 6 Independent with activity with or without an assistive device 5 Patient requires set up or clean up by helper. Patient completes activity by themselves 4 Supervision or touching assist (CGA). Gateway provide cues , steadying assist 3 The helper provides less than half the effort to complete the activity 2 The helper provides more than half the effort to complete the activity 1 Dependent. The helper does all the effort to complete an activity 7 Patient refused to complete or attempt activity 9 The patient did not perform the activity before the current illness or injury 88 Not attempted due to Medical conditions or safety concerns sit to stand x4 with CGA to min assist Weight Bearing Right Lower Extremity: Right Weight Bearing/Tolerated Left Lower Extremity: Left Weight Bearing/Tolerated Gait Training Gait (FIM): 2 Distance (FIM): 1=934-18 ft Gait Assistive Device: FWW Pt. with narrow DARIAN, poor DF left, staggered balance at times, poor control of asst device requiring mod to max assist to guide device as well as maintain pts. balance Exercises Seated Therapy Exercises: Ankle pumps, Sit to stand, Long arc quads, Hip flexion, Hip abd/add Seated Reps: 12 Assessment Current Status: Good Progress cooperative, dependent for safety and balance PT Nursing Home Goals Nursing Home Goals PT Nursing Home Goals Time Frame: Sep 01, 2018 Transfers (B,C,W/C) (FIM): 6 Gait (FIM): 6 Gait distance (FIM): 3=150 ft Distance: >300' Gait Level of Assist: 6 Gait Assistive Device: FWW PT Plan Treatment/Plan Treatment Plan: Continue Plan of Care Treatment Plan: Bed Mobility, Education, Functional Activity Allison, Functional Strength, Gait, Safety, Therapeutic Exercise, Transfers Treatment Duration: Sep 01, 2018 Frequency: 6 times per week Estimated Hrs Per Day: .25 hour per day Patient and/or Family Agrees t: Yes Safety Risks/Education Patient Education: Gait Training, Transfer Techniques, Correct Positioning, Disease Process, Safety Issues Teaching Recipient: Patient Teaching Methods: Demonstration, Discussion Response to Teaching: Verbalize Understanding, Unable to Comprehend, Reinforcement Needed Time/GCodes Time In: 930 Time Out: 955 Total Billed Treatment Time: 25 Total Billed Treatment 1,GT15m,EX10m G Codes Necessary: ANETA Carrasco PTA Aug 15, 2018 10:00
--- NOTE | 2018-08-15 11:09 | Progress Note-Hospitalist ---
Progress Note Progress Notes/Assess & Plan Date Seen 08/15/18 Time Seen by Provider: 11:05 Assessment & Plan The patient is sitting up in his room. He is better oriented than on admission. Interestingly he has some inSIGHT in some subjects such as his ' s state of health but confused in others. He is beginning to ambulate and is taking nutrition. They will be transferred to [facility] today. Physical exam: Lungs are clear to auscultation. CV is regular without murmur. Abdomen is soft. Extremities show no pedal edema. Impression: Acute increase in chronic dementia. 2.poor ability to complete the activities of daily living. Plan: Transfer to [facility]. See discharge sequence for medications and activities. Copy Copies To 1: RICHY MEEHAN MD, RODNEY K MD Aug 15, 2018 11:09
--- NOTE | 2018-08-15 11:18 | Discharge Inst-Skilled Nursing ---
Discharge Inst-Skilled NF Chief Complaint Pt is a 73yoCM who presented to the ER via EMS after being found wondering outside in the rain. Per report from ER doctor he was very confused when he arrived and unable to give much history but has been clearing. His story is still somewhat limited but he was able to tell me that he was out in the rain for hours. He is unsure why. He believes he was out there for hours. He was reported to police by a stranger for wandering with a flashlight. He believes he 's fallen 5-6x time tripping over his cats as well. He doesn't think he hurt his head when he fell. He is otherwise unable to tell me any other pertinent history. Family states he is still not back to baseline. Patient Instructions Patient Problems: Dementia. 2.poor nutrition. 3.inability activity of daily living. 4.gait disturbance Goal: Restore ambulation, nutrition, and and improved mentation Consult/Follow Up/Orders Follow Up Appt.: Dr. Bean Skilled NF Admit to: Via [facility] Certification (SNF) I certify that SNF services are required to be given on an inpatient basis because of the above named patient's need for [facility] care on a continuing basis for the conditions(s) for which he/she was receiving inpatient hospital services prior to his/her transfer to the SNF. [facility] Facility Order: Nursing Services, [facility] [employer] [employer] [facility]-Evaluate & Treat, Physical Therapy-Evaluate & Treat Oxygen Delivery Method: Room Air Discharge Diet: No Restrictions Daily Activity as Tolerated: Yes New & Resume Previous Orders Yunier Melendez Aug 15, 2018 11:15 Pneu Vac Indicated: Yes YUNIER MELENDEZ MD Aug 15, 2018 11:18
--- NOTE | 2018-08-15 13:04 | NUR ---
CM/SS sent all discharge paperwork to [facility].
[2018-08-15 13:34] VITALS: BP 123/69
--- NOTE | 2018-08-15 13:34 | NUR ---
REPORT CALLED TO RN AT [facility]. IV CATHETER REMOVED, DISCHARGE INSTRUCTIONS DISCUSSED WITH PATIENT, AND RN AT [facility]. [facility] TRANSPORTATION HERE TO [facility] RESIDENT TO [facility] AT THIS TIME.
--- NOTE | 2018-08-15 14:46 | Occupational Ther Daily Note ---
OT Current Status-Daily Note Subjective Pt in recliner, alert, cooperative & agree for therapy. Pain Numeric Pain Scale: 0-No Pain Location: No Pain Reported Mental Status/Objective Patient Orientation: Person, Place Therapy Code Descriptions/Definitions Functional [place] Measure: 0=Not Assessed/NA 4=Minimal Assistance 1=Total Assistance 5=Supervision or Setup 2=Maximal Assistance 6=Modified [place] 3=Moderate Assistance 7=Complete [place] ADL-Treatment Pt participated in grooming & strengthening ex to BUE & func. mobility with FWW. Pt has unsteady balance , poor control of asst device , requiring mod to max assist to guide device as well as maintain his standing balance. Pt walk to the Rest room & later walk with FWW out in the corridor . Pt completed 30 reps x 2 lb wts , 30 reps with hand gripper & 30 reps with red theraband to strengthen BUE to participate in all self care tasks & to push up from bed or recliner to stand . Pt Mod I in toilet hygiene . Eating (FIM): 6 Grooming (FIM): 6 Bathing (FIM): 5 Upper Body (FIM): 6 Lower Body Dressing (FIM): 5 Toileting (FIM): 6 Transfers (B, C, W/C) (FIM): 6 Toilet/Commode Transfer (FIM): 6 Tub Transfer(FIM): 0 Shower Transfer(FIM): 6 Education OT Patient Education: Correct positioning Teaching Recipient: Patient Teaching Methods: Demonstration Response to Teaching: Verbalize Understanding OT Short Term Goals Short Term Goals Time Frame: Aug 27, 2018 Additional Short Term Goals: 1-Demonstrate ADL Tasks, 2-Verbalize Understanding , 3-ImproveStrength/Allisno 1=Demonstrate adherence to instructed precautions during ADL tasks. 2=Patient will verbalize/demonstrate understanding of assistive devices/ modifications for ADL. 3=Patient will improve strength/tolerance for activity to enable patient to perform ADL's. OT Mcc Goals Chairlift Operator Goals Time Frame: Sep 10, 2018 Eating (FIM): 7 Grooming(FIM): 6 Bathing(FIM): 6 Bathing Location: L Arm, R Arm, L Upper Leg, R Upper Leg, L Lower Leg ( including foot), R Lower Leg (including foot), Chest, Abdomen, Buttocks, Perineal Area Upper Body Dressing(FIM): 6 Lower Body Dressing(FIM): 6 Toileting(FIM): 6 Transfers (B,C,W/C) (FIM): 6 Toilet/Commode Transfer(FIM): 6 Tub Transfer(FIM): 0 Shower Transfer(FIM): 6 Additional Goals: 1-Demonstrate ADL Tasks, 2-Verbalize Understanding, 3- ImproveStrength/Allison 1=Demonstrate adherence to instructed precautions during ADL tasks. 2=Patient will verbalize/demonstrate understanding of assistive devices/ modifications for ADL. 3=Patient will improve strength/tolerance for activity to enable patient to perform ADL's. OT Education/Plan Problem List/Assessment Assessment: Decreased Activ Tolerance, Decreased Safety Aware, Decreased UE Strength, Dependent Transfers, Impaired Bed Mobility, Impaired Funct Balance, Impaired Self-Care Skills Discharge Recommendations Plan/Recommendations: Continue POC Therapy D/C Recommendations: [facility] Equpiment Recommendations-D/C: Extended Bath Bench, Extended Shower Sprayer Treatment Plan/Plan of Care Treatment,Training & Education: Yes Patient would benefit from OT for education, treatment and training to promote independence in ADL's, mobility, safety and/or upper extremity function for ADL' s. Plan of Care: ADL Retraining, Functional Mobility, UE Funct Exercise/Act, UE Neuromus Re-Ed/Coord Treatment Duration: Sep 10, 2018 Frequency: 5 times per week Estimated Hrs Per Day: .25 hour per day Agreement: Yes Rehab Potential: Good Time/GCodes Start Time: 10:40 Stop Time: 11:05 Total Time Billed (hr/min): 25 Billed Treatment Time 1, ADLs 14 min, Ex 11 min. Total 25 min. LATRICE PEÑA OT Aug 15, 2018 14:45
== END 2018-08-15 13:34 | DRG 689 ==
LOC: EDUNIT# 07:16 → ER 07:17 → ICU 11:04 → OBSVTOIN 14:19 → 4TH 08-13 11:10
PROVIDERS: ADMIT Family Medicine; ATTEND Family Medicine
DX: N39.0 Urinary tract infection, site not specified (principal); E86.0 Dehydration; G93.41 Metabolic encephalopathy; E87.2 Acidosis; R41.0 Disorientation, unspecified; N42.9 Disorder of prostate, unspecified; T68.XXXA Hypothermia, initial encounter; F03.90 Unspecified dementia, unspecified severity, without behavioral disturbance, psychotic disturbance, mood disturbance, and anxiety; Z66 Do not resuscitate; R00.1 Bradycardia, unspecified; R29.6 Repeated falls; X31.XXXA Exposure to excessive natural cold, initial encounter
CPT/HCPCS: 36415; 70450; 80048; 80053; 80306; 80320; 81000; 82140; 82550; 83735; 84443; 85025; 85027; 87088; 96361; 96365; G0378

== ENCOUNTER 2018-08-19 02:27 | Emergency (ER) | payer MEDICARE ==
[~2018-08-19] VITALS: Ht 188 cm; Wt 79.4 kg
[~2018-08-19 02:27] MED LIST: FINA5TAB6 PO; TAMS0.4C98 PO
[2018-08-19 03:45] LABS: BASOPHILS % (AUTO) 1 % (0-10); EOSINOPHILS % (AUTO) 0 % (0-10); HEMATOCRIT 38 % (40-54); HEMOGLOBIN 12.4 G/DL (13.3-17.7); LYMPHOCYTES # (AUTO) 1.1 X 10^3 (1.0-4.0); LYMPHOCYTES % (AUTO) 32 % (12-44); MEAN CORPUSCULAR HEMOGLOBIN 29 PG (25-34); MEAN CORPUSCULAR HGB CONC 33 G/DL (32-36); MEAN CORPUSCULAR VOLUME 88 FL (80-99); MEAN PLATELET VOLUME 11.6 FL (7.4-10.4); MONOCYTES # (AUTO) 0.4 X 10^3 (0.0-1.0); MONOCYTES % (AUTO) 14 % (0-12); NEUTROPHILS # (AUTO) 1.7 X 10^3 (1.8-7.8); NEUTROPHILS % (AUTO) 53 % (42-75); PLATELET COUNT 154 10^3/uL (130-400); RED CELL DISTRIBUTION WIDTH 14.8 % (10.0-14.5); WHITE BLOOD COUNT 3.3 10^3/uL (4.3-11.0)
[2018-08-19 03:46] LABS: BILIRUBIN,URINE NEGATIVE (NEGATIVE); CLARITY,URINE CLEAR; COLOR,URINE YELLOW; GLUCOSE, URINE (UA) NEGATIVE (NEGATIVE); KETONES,URINE NEGATIVE (NEGATIVE); LEUKOCYTE ESTERASE ,URINE 1+ (NEGATIVE); NITRITE,URINE NEGATIVE (NEGATIVE); PH,URINE 6 (5-9); PROTEIN,URINE 1+ (NEGATIVE); UROBILINOGEN,URINE 1 MG/DL (NORMAL)
[2018-08-19 03:54] LABS: BACTERIA,URINE NEGATIVE /HPF; WBC,URINE RARE /HPF
[2018-08-19 04:05] LABS: ALANINE AMINOTRANSFERASE 44 U/L (0-55); ALBUMIN 3.7 GM/DL (3.2-4.5); ALKALINE PHOSPHATASE 34 U/L (40-136); BUN/CREATININE RATIO 22; CALCIUM 9.9 MG/DL (8.5-10.1); CARBON DIOXIDE 24 MMOL/L (21-32); CHLORIDE 104 MMOL/L (98-107); CREATININE SERUM 0.92 MG/DL (0.60-1.30); GFR ESTIMATED > 60; GLUCOSE 96 MG/DL (70-105); MAGNESIUM 2.6 MG/DL (1.8-2.4); POTASSIUM 4.2 MMOL/L (3.6-5.0); SODIUM 137 MMOL/L (135-145); TOTAL PROTEIN 7.4 GM/DL (6.4-8.2)
[2018-08-19 04:11] LABS: ACETAMINOPHEN < 10 UG/ML (10-30)
[2018-08-19 04:13] LABS: AMPHETAMINE SCREEN, URINE NEGATIVE (NEGATIVE); BARBITURATE SCREEN URINE NEGATIVE (NEGATIVE); BENZODIAZEPINES SCREEN URINE NEGATIVE (NEGATIVE); CANNABINOID SCREEN, URINE NEGATIVE (NEGATIVE); COCAINE SCREEN URINE NEGATIVE (NEGATIVE); METHADONE STAT NEGATIVE (NEGATIVE); METHAMPHETAMINE SCREEN URINE S NEGATIVE (NEGATIVE); OPIATE SCREEN URINE NEGATIVE (NEGATIVE); OXYCODONE STAT NEGATIVE (NEGATIVE); PROPOXYPHENE STAT NEGATIVE (NEGATIVE); TRICYCLIC ANTIDEPRESSANTS SCRE NEGATIVE (NEGATIVE)
[2018-08-19 04:25] LABS: TSH (THYROID ANALYZER) 1.25 UIU/ML (0.35-4.94)
--- NOTE | 2018-08-19 04:49 | NUR ---
Pt resting quietly in bed. Brother at bedside.
--- NOTE | 2018-08-19 06:05 | ED General ---
General Chief Complaint: Altered Mental Status Stated Complaint: AGITATION Nursing Triage Note: Pt to ED via [facility] from [facility]. Facility staff report pt became extremely agitated and began ripping items off wall in restroom. Pt reportedly threw soap dispenser at staff, was punching jose, and ripped towel nichole off wall and was swinging it at staff and police on scene. Pt calm upon arrival to ED but confused. Pt thinks he is in [place], [place] and unable to state correct day of week or month. Nursing Sepsis Screen: No Definite Risk Source of Information: Patient (PT EXTREMELY POOR HISTORIAN AND APPEARS TO HAVE DEMENTIA/IS CONFUSED ), EMS, Family (BROTHER), Long Term Records, Old Records (ALL PMH IS FROM OLD RECORDS), Police History of Present Illness Date Seen by Provider: Aug 19, 2018 Time Seen by Provider: 02:24 Initial Comments PT ARRIVES VIA EMS FROM [facility]IA [facility]--[place] POLICE ARRIVE PRIOR TO PT 'S ARRIVAL--THEY WERE AT HALF-WAY AND HAD TO ASSIST WITH SUBDUING PT PT BECAME VERY AGITATED TONIGHT AND BECAME VERY AGGRESSIVE AND VIOLENT-- PUNCHING JOSE, RIPPED SOAP DISPENSER OFF THE WALL AND THREW IT AT STAFF, RIPPED A TOWEL NICHOLE OFF THE WALL AND WAS SWINGING IT AT STAFF, AND ALSO SWINGING IT AT POLICE AT THE SCENE, SHOVED TOWELS DOWN TOILET, COMPLETELY TORE UP A BATHROOM NO APPARENT INJURY TO HIMSELF AND PT DENIES PAIN ANYWHERE PT WITH APPARENT DEMENTIA--IS CONFUSED TO PLACE, TIME, SITUATION. CANNOT COMPLETE SENTENCES, GIVES EXTREMELY VAGUE AND INCOMPLETE ANSWERS TO QUESTIONS, AND TALKS NON-SENSICAL MUCH OF THE TIME. WHEN ASKED WHAT HAPPENED, HE REPORTS "WAS DISTURBING THE [place]" "DIDN'T LIKE THE WAY THEY ( LATER STATES THE POLICE) WERE DOING THINGS" " PISSED ME OFF" --- BUT IS UNABLE TO FORM COMPLETE THOUGHTS/SENTENCES ALSO STATES "EMS PUT ME IN [facility] IN [place] ON MONDAY AND THEY WAS USING BLOOD SUGAR TEST ON THESE FINGER DEALS-HOW COME YOU GUYS CAN'T DO THAT" ---- SOME OF THIS APPEARS THAT PT IS RELATING WHAT EMS HAD JUST BEEN REPORTING TO ER STAFF, AND WHAT NURSING STAFF WERE CURRENTLY TRYING TO DO ON HIS ARRIVAL HERE, SUCH TAKE VITALS, ETC. --THAT HE WAS HERE EARLIER IN WEEK, AND THEY REPORTED PT'S ACCUCHECK, WHILE TRYING TO OBTAIN O2 SAT WITH FINGER PROBE, ETC. PT WAS ADMITTED HERE 08/11/18-08/15/18, AFTER BEING FOUND WANDERING DOWN THE ROAD IN [place], VERY CONFUSED, HALLUCINATING AT TIMES, AND IN A VERY POOR CONDITION. IT WAS LATER DISCOVERED THAT HE HAD A AT HOME AND POLICE WERE SENT TO DO A WELL BEING CHECK ON , AND SHE WAS FOUND TO BE IN EXTREMELY POOR CONDITION-- HAD NOT BEEN OUT OF RECLINER FOR UNKNOWN LENGTH OF TIME, LAYING IN FECES, WITH EXTENSIVE DECUBITUS ULCERS OF ENTIRE BUTTOCKS, EXTREMELY EMACIATED, ETC. SHE WAS ALSO CONFUSED. HOUSE WAS REPORTEDLY IN A DEPLORABLE STATE. SHE WAS BROUGHT TO THE ER BY FAMILY AND ADMITTED TO THE HOSPITAL WELL. UPON THIER DISMISSALS FROM THE HOSPITAL, THEY WERE ADMITTED TO [facility] PT'S BROTHER, MIGUELITO MCGOVERN, HAS BEEN APPOINTED PT'S DPOA. HE LATER IS HERE IN ER WITH PT. HE STATES THAT PT OBVIOUSLY HAS DEMENTIA, BUT DOES NOT THINK IT HAS BEEN FORMALLY DIAGNOSED. IS UNSURE HOW LONG PT HAS HAD ISSUES WITH CONFUSION, BUT HE STATES THAT PT HALLUCINATES AT TIMES WELL. HE STATES THAT PT HAS 2 DAUGHTERS, AND ONE LIVES IN [place], [place] AND THE OTHER LIVES IN [place], AND IS SUPPOSED TO BE COMING TO VISIT THEM TODAY. HE ALSO REPORTS THAT THEIR MOTHER IS CURRENTLY IN A HALF-WAY, WITH DEMENTIA , AND IS 97 YEARS OLD. PCP: DR. MEEHAN Allergies and Home Medications Allergies Coded Allergies: No Known Drug Allergies (Unverified , 08/11/18) Home Medications Finasteride 5 Mg Tablet, 5 MG PO HS, (Reported) Tamsulosin HCl 0.4 Mg Cap, 0.4 MG PO DAILY, (Reported) Patient Home Medication List Home Medication List Reviewed: Yes Review of Systems Review of Systems Constitutional: other (PT IS UNABLE TO GIVE RELIABLE INFORMATION) Psychiatric/Neurological: See HPI Past Wbbdrct-Rwfipp-Jzlrdg Hx Patient Social History Alcohol Use: Denies Use Recreational Drug Use: No Smoking Status: Former Smoker Recent Foreign Travel: No Contact w/Someone Who Travel: No Recent Infectious Disease Expo: No Recent Hopitalizations: No Seasonal Allergies Seasonal Allergies: No Past Medical History Surgeries: Yes Orthopedic Respiratory: No (none reported) Cardiac: No Neurological: Yes (SUSPECTED DEMENTIA) Reproductive Disorders: No Genitourinary: Yes Prostate Problems, UTI-Chronic Gastrointestinal: No Musculoskeletal: No Endocrine: No HEENT: No Cancer: No Psychosocial: No Integumentary: No Blood Disorders: No Family Medical History Osteoporosis 19 MOTHER No Pertinent Family Hx Physical Exam Vital Signs Vital Signs - First Documented 08/19/18 02:27 Temp 97.7 Pulse 74 Resp 18 B/P (MAP) 183/92 (122) Pulse Ox 100 O2 Delivery Room Air Capillary Refill : Less Than 3 Seconds Height, Weight, BMI Height: 6'2.00" Weight: 175lbs. 7.0oz. [id number]; 19.3 BMI Method:Stated General Appearance: No Apparent Distress, Cachetic, Other (MALODOROUS) HEENT: PERRL/EOMI, Other (POOR DENTITION) Neck: Normal Inspection, Non Tender, Supple Respiratory: Chest Non Tender, Normal Breath Sounds, No Accessory Muscle Use, No Respiratory Distress Cardiovascular: Regular Rate, Rhythm, No Edema, No JVD, No Murmur, Normal Peripheral Pulses Gastrointestinal: Normal Bowel Sounds, No Organomegaly, No Pulsatile Mass, Non Tender, Soft Back: Normal Inspection, No CVA Tenderness, No Vertebral Tenderness Extremity: Normal Capillary Refill, Normal Inspection, Normal Range of Motion, Non Tender, No Calf Tenderness, No Pedal Edema Neurologic/Psychiatric: Alert, No Motor/Sensory Deficits, Normal Mood/Affect ( PT CALM AND COOPERATIVE), silhouette artist II-XII Norm as Tested (GROSSLY INTACT, BUT DOES HAVE SOME DIFFICULTY FOLLOWING SIMPLE COMMANDS. ), Other (PT ORIENTED TO PERSON ONLY. KNOWS YEAR ONLY, KNOWS MARIA ELENA IS PRESIDENT, BUT DOES NOT KNOW PLACE, TIME OF DAY OR SITUATION. EXTREMELY POOR MEMORY, AND SPEECH IS INCOHERENT / NONSENSICAL MOST OF THE TIME, AND CANNOT COMPLETE SENTENCES/THOUGHT PROCESSES, OR ANY RATIONAL/LINEAR THINKING. PT STATES HE IS AT [facility], DOES REFERENCE IT BEING DESTROYED BY [employer], AND LATER STATES HE IS IN [place]. ) Skin: Normal Color, Warm/Dry, Other (HAS VERY MINOR ABRASION TO RIGHT ANKLE AREA, AND FAINT, SMALL AREA OF ERYTHEMA TO RIGHT LOWER CHEST. NONE OF THESE AREAS ARE TENDER. ) Progress/Results/Core Measures Suspected Sepsis Recent Fever Within 48 Hours: No Infection Criteria Present: None New/Unexplained Altered Menta: Yes Sepsis Screen: No Definite Risk SIRS Temperature:97.7 Pulse: 74 Respiratory Rate: 18 Laboratory Tests 08/19/18 03:36: White Blood Count 3.3L Blood Pressure 183 /92 Mean: 122 Laboratory Tests 08/19/18 03:36: Creatinine 0.92, Platelet Count 154, Total Bilirubin 1.0 Results/Orders Lab Results My Orders Vital Signs/I&O Capillary Refill : Less Than 3 Seconds Blood Pressure Mean: 122 Progress Note : Progress Note BROTHER IS HERE, AND PT IS ORIENTED TO HIM, BUT CONTINUES TO TALK NON- SENSICALLY AND INCOHERENTLY. AT ONE POINT HE STATES "SO AM I GOING TO TRIAL NOW?" THEN RAMBLES ON INCOHERENTLY. PT MAKES SEVERAL REFERENCES TO POLICE, [facility], ETC. DURING ER STAY. PT REMAINED CALM, AND COOPERATIVE AND RESTED QUIETLY FOR ENTIRE ER STAY ECG Initial ECG Impression Date: Aug 19, 2018 Initial ECG Impression Time: 02:46 Initial ECG Rate: 62 Initial ECG Rhythm: Normal Sinus Departure Communication (Admissions) 6697--CALLED [facility]. WILL HAVE SCREENER CALL ME BACK. 0722--SPOKE WITH AGATHA THAO, SHE WILL BE IN TO SEE PT 0613--MASTER SNIDER, HERE TO SEE PT. 0635--SPOKE WITH DR. RUSSELL, FLIGHT SURGEON PHYSICIAN FOR [facility]. ACCEPTS PT FOR ADMIT. Impression Primary Impression: Aggressive behavior of adult Additional Impressions: CONFUSION WITH SUSPECTED DEMENTIA RESOLVING UTI Disposition: 65 XFER TO PSYCH HOSP/UNIT Condition: Stable Transfer Transfer Facility: [facility] Method of Transfer: EMS Departure-Patient Inst. Referrals: RICHY MEEHAN MD (PCP/Family) Primary Care Physician ROD THOMAS DO Aug 19, 2018 06:05
--- NOTE | 2018-08-19 07:05 | NUR ---
PT RESTING QUIETLY.
--- NOTE | 2018-08-19 07:30 | NUR ---
[facility] CALLED AND ASKED FOR TRANSPORT OF PT TO [facility] [place]. EMS WILL TRANSPORT AFTER 0800 SHIFT CHANGE, DISPATCH CALLED.
--- NOTE | 2018-08-19 07:59 | NUR ---
PT RESTING QUIETLY.
--- NOTE | 2018-08-19 08:07 | NUR ---
SPOKE WITH MASTER FROM [facility] AND PT'S BROTHER MIGUELITO, HERE IN THE ER, ABOUT PT CARE. MIGUELITO GOES TO PT'S RM AND PT IS NOW STANDING AT BEDSIDE ADJUSTING HIS SHEETS. PT ASSISTED WITH SHEETS AND POSTIONED BACK IN BED. COMPUTER MOVED TO OUTSIDE PT'S DOOR SO THIS RN CAN WATCH OVER PT. NO FURTHER ISSUES WITH PT GETTING OUT OF BED.
[2018-08-19 09:02] VITALS: BP 161/84
== END 2018-08-19 09:00 ==
LOC: EDUNIT# 02:36 → ER 02:39
DX: F91.1 Conduct disorder, childhood-onset type (principal); R41.0 Disorientation, unspecified; Z87.440 Personal history of urinary (tract) infections
CPT/HCPCS: 36415; 80053; 80306; 80320; 80329; 81000; 83735; 84443; 85025; 93005

== ENCOUNTER 2018-09-28 17:09 | Emergency (ER) | payer MEDICARE ==
[~2018-09-28] VITALS: Ht 182.9 cm; Wt 59.0 kg
--- OUTSIDE RECORDS SUMMARY | 2018-09-28 17:13 | XMS REPORT | Continuity of Care Document ---
Author Organization Unknown Address Unknown Allergies Active Description Code Type Severity Reaction Onset Reported/Identified Relationship to Patient Clinical Status Yes NO KNOWN DRUG ALLERGIES UNKNOWN NO KNOWN DRUG ALLERG Medications Medication Packaging Start Date Stop Date Route Dosage Sig ACETAMINOPHEN ORAL TABLET 325mg(Tylenol) MG 08/19/2018 09/18/2018 PRN EVERY 6 Hour CALMOSEPTINE OINT TUBE (RISAMINE OINT) sylvie 08/19/2018 08/26/2018 PRN QID LOPERAMIDE CAP 2 MG (IMMODIUM) MG 08/19/2018 08/26/2018 PRN QID POLYETHYLENE GLYCOL POWDER UD PWD (MIRALAX 17GM UNIT DOSE PAKS) gm 08/19/2018 08/29/2018 PRN Q3H PNEUMONIA VACCINE INJ (PREVNAR-13) ml 08/19/2018 08/19/2018 ONCE&1239 ALUM/MAG/SIMETH 30CC LIQ (MYLANTA PLUS) cc 08/19/2018 08/29/2018 PRN Q4H HALOPERIDOL VIAL INJ 5 MG/CC (HALDOL 1CC VIAL) MG 08/19/2018 08/19/2018 PRN ONCE HALOPERIDOL TAB 5 MG (HALDOL) MG 08/19/2018 08/19/2018 ONCE&1651 TAMSULOSIN CAP 0.4 MG (FLOMAX) MG 08/19/2018 09/17/2018 QPM&1800 HALOPERIDOL VIAL INJ 5 MG/CC (HALDOL 1CC VIAL) MG 08/19/2018 08/21/2018 PRN Q6H RISPERIDONE TAB 0.25 MG (RISPERDAL) MG 08/19/2018 09/18/2018 BID&0800,2000 LACTULOSE SYRUP LIQ 20 GM/30CC (CHRONULAC SYRUP) GM 08/19/2018 09/18/2018 BID&0800,2000 MILK OF MAGNESIA LIQ ml 08/19/2018 09/18/2018 PRN BID MIRTAZAPINE TAB 15 MG (REMERON) MG 08/19/2018 08/25/2018 QHS&2100 MELATONIN TAB 3 MG (MELATONIN) MG 08/19/2018 08/25/2018 QHS&2100 SERTRALINE TAB 50 MG (ZOLOFT) MG 08/20/2018 09/18/2018 Daily&0900 FINASTERIDE TAB 5 MG (PROSCAR) MG 08/20/2018 09/18/2018 Daily&0900 BISACODYL SUPPOS 10 MG (DULCOLAX SUPPOS) MG 08/20/2018 08/26/2018 PRN Daily HALOPERIDOL TAB 5 MG (HALDOL) MG 08/21/2018 08/21/2018 ONCE&1524 RISPERIDONE TAB 0.25 MG (RISPERDAL) MG 08/22/2018 09/20/2018 Daily&1400 RISPERIDONE TAB 0.25 MG (RISPERDAL) MG 08/22/2018 09/21/2018 Q12H&0600,1800 Ziprasidone IM recon soln 20mg/mL vial (Geodon) MG 08/23/2018 08/23/2018 ONCE&0636 SERTRALINE TAB 50 MG (ZOLOFT) MG 08/23/2018 09/21/2018 Daily&0900 RISPERIDONE TAB 0.25 MG (RISPERDAL) MG 08/23/2018 09/21/2018 Daily&1200 RISPERIDONE TAB 0.5 MG (RISPERDAL) MG 08/23/2018 09/21/2018 Daily&1200 RISPERIDONE TAB 0.5 MG (RISPERDAL) MG 08/23/2018 09/22/2018 TID&0800,1400,2000 OLANZAPINE DISSOLVABLE TAB 10 MG (ZYPREXA ZYDIS) MG 08/23/2018 08/30/2018 PRN BID OLANZAPINE IM VIAL INJ 10 MG/VIAL (ZYPREXA IM VIAL) MG 08/23/2018 09/22/2018 PRN BID RISPERIDONE TAB 0.5 MG (RISPERDAL) MG 08/23/2018 09/22/2018 Q12H&0600,1800 QUETIAPINE TAB 100 MG (SEROQUEL) MG 08/23/2018 09/22/2018 BID&0800,2000 FLUVOXAMINE TAB 50 MG (LUVOX) MG 08/23/2018 09/22/2018 BID&0800,2000 HALOPERIDOL TAB 5 MG (HALDOL) MG 08/23/2018 08/25/2018 Q8H&0600,1400,2200 OLANZAPINE IM VIAL INJ 10 MG/VIAL (ZYPREXA IM VIAL) MG 08/24/2018 08/24/2018 ONCE&1406 LORAZEPAM 1CC VIAL INJ 2 MG/CC (ATIVAN VIAL) MG 08/24/2018 08/24/2018 PRN ONCE DIPHENHYDRAMINE VIAL INJ 50 MG/CC (BENADRYL VIAL) MG 08/24/2018 08/24/2018 ONCE&1406 HALOPERIDOL TAB 5 MG (HALDOL) MG 08/25/2018 09/24/2018 TID&0700,1400,2000 Ziprasidone IM recon soln 20mg/mL vial (Geodon) MG 08/25/2018 08/25/2018 ONCE&1800 OLANZAPINE IM VIAL INJ 10 MG/VIAL (ZYPREXA IM VIAL) MG 08/25/2018 08/25/2018 ONCE&2059 LORAZEPAM 1CC VIAL INJ 2 MG/CC (ATIVAN VIAL) MG 08/25/2018 08/25/2018 PRN ONCE DIPHENHYDRAMINE VIAL INJ 50 MG/CC (BENADRYL VIAL) MG 08/25/2018 08/25/2018 PRN ONCE DIPHENHYDRAMINE VIAL INJ 50 MG/CC (BENADRYL VIAL) MG 08/25/2018 08/28/2018 PRN Q6H HALOPERIDOL VIAL INJ 5 MG/CC (HALDOL 1CC VIAL) MG 08/26/2018 08/26/2018 PRN ONCE LORAZEPAM 1CC VIAL INJ 2 MG/CC (ATIVAN VIAL) MG 08/26/2018 08/26/2018 PRN ONCE DIPHENHYDRAMINE VIAL INJ 50 MG/CC (BENADRYL VIAL) MG 08/26/2018 08/26/2018 PRN ONCE HALOPERIDOL VIAL INJ 5 MG/CC (HALDOL 1CC VIAL) MG 08/27/2018 08/27/2018 PRN ONCE LORAZEPAM 1CC VIAL INJ 2 MG/CC (ATIVAN VIAL) MG 08/27/2018 08/27/2018 PRN ONCE DIPHENHYDRAMINE VIAL INJ 50 MG/CC (BENADRYL VIAL) MG 08/27/2018 08/27/2018 PRN ONCE LORAZEPAM TAB 1 MG (ATIVAN) MG 08/27/2018 09/26/2018 PRN BID OLANZAPINE TAB 10 MG (ZYPREXA) MG 08/27/2018 09/25/2018 BID&0800,2000 HALOPERIDOL TAB 5 MG (HALDOL) MG 08/27/2018 08/27/2018 ONCE&1215 HALOPERIDOL VIAL INJ 5 MG/CC (HALDOL 1CC VIAL) MG 08/27/2018 09/03/2018 PRN Q4H LORAZEPAM 1CC VIAL INJ 2 MG/CC (ATIVAN VIAL) MG 08/27/2018 09/03/2018 PRN Q4H OLANZAPINE DISSOLVABLE TAB 10 MG (ZYPREXA ZYDIS) MG 08/27/2018 09/26/2018 BID&0800,1999 Problems There is no data. Procedures There is no data. Results Test Result Range Lipid Panel - 08/20/18 05:00 C/HDL 3.2 3.7-6.7 Cholesterol 132 mg/dL 100-240 HDL 41 mg/dL 30-85 LDL-Calculated 81 mg/dL 0-100 Trig 52 mg/dL 35-160 VLDL 10 mg/dL 0-42 Urinalysis - 08/23/18 12:18 Icotest N/A Negative Urine Volume Urine Volume Sufficient (10mL) Urine-Appearance Clear Clear Urine-Bacteria Negative Urine-Bilirubin Negative Negative Urine-Blood Trace-lysed Negative Urine-Color Yellow Colorless-Lt. Yellow Urine-Epithelial Cells 0-5/HPF Urine-Glucose Negative Negative Urine-Ketones Negative Negative Urine-Leukocytes Negative Negative Urine-Nitrite Negative Negative Urine-Other Urine Saved if Culture Needed (48hrs from time of collection) Urine-pH 6.0 5-8.5 Urine-Protein Negative Negative Urine-RBC Rare/HPF Urine-Specific [place] <=1.005 1.000-1.030 Urine-WBC Negative Urobilinogen 0.2 E.U./dL 0.2-1.0 Comprehensive Metabolic Panel - 08/26/18 05:20 Albumin 3.9 g/dL 3.6-5.1 ALP 40 U/L 35-130 ALT 20 U/L 6-45 Anion Gap 13 6-14 AST 27 U/L 2-40 BUN 25 mg/dL 5-25 Calcium 10.3 mg/dL 8.3-10.4 Chloride 105 mmol/L 95-114 CO2 26 mEq/L 22-33 Creat 0.96 mg/dL 0.50-1.50 eGFR 76 mL/min/1.73m2 >59 Globulin 3.8 g/dL 2.3-3.5 Glucose 87 mg/dL 70-110 Osmo 293 280-295 Potassium 4.3 mmol/L 3.5-5.3 Sodium 140 mmol/L 134-148 TBil 1.2 mg/dL 0.2-1.2 TP 7.7 g/dL 6.0-8.3 Encounters ACCT No. Visit Date/Time Discharge Status Pt. Type Provider Facility Loc./Unit Complaint [id number] 08/19/2018 08:23:00 08/28/2018 08:05:00 DIS Inpatient [facility] RAMON [id number] 08/19/2018 10:52:04 Document Registration
--- NOTE | 2018-09-28 17:21 | ED GU-Male ---
General Chief Complaint: - Urinary Stated Complaint: BLOOD IN URINE Source: patient, EMS, group home records Exam Limitations: other (patient's dementia) History of Present Illness Date Seen by Provider: September 28, 2018 Time Seen by Provider: 17:18 Initial Comments 73-[facility]uria that was noted by the nursing staff today shortly prior to presentation to the emergency department. The patient because of his dementia is unable to offer helpful history. He is able to answer simple questions. He denies any pain with urination. He denies any trauma to self. He denies other complaint. Allergies and Home Medications Allergies Coded Allergies: No Known Drug Allergies (Unverified , 08/11/18) Home Medications Finasteride 5 Mg Tablet, 5 MG PO HS, (Reported) Tamsulosin HCl 0.4 Mg Cap, 0.4 MG PO DAILY, (Reported) Patient Home Medication List Home Medication List Reviewed: Yes Review of Systems Review of Systems Constitutional: No chills, No fever EENTM: no symptoms reported Respiratory: No cough Cardiovascular: No chest pain Gastrointestinal: No abdominal pain, No diarrhea, No vomiting Genitourinary: see HPI; denies dysuria, denies frequency; hematuria Musculoskeletal: No back pain Skin: No rash Psychiatric/Neurological: Other (dementia) Endocrine: No Symptoms Reported Hematologic/Lymphatic: No Symptoms Reported Past Zschfps-Ddcmye-Tozbea Hx Past Med/Social Hx: Reviewed Nursing Past Med/Soc Hx Patient Social History Recent Foreign Travel: No Contact w/Someone Who Travel: No Recent Hopitalizations: No Seasonal Allergies Seasonal Allergies: No Past Medical History Surgeries: Yes Orthopedic Respiratory: No (none reported) Cardiac: No Neurological: Yes (SUSPECTED DEMENTIA) Reproductive Disorders: No Genitourinary: Yes Prostate Problems, UTI-Chronic Gastrointestinal: No Musculoskeletal: No Endocrine: No HEENT: No Cancer: No Psychosocial: No Integumentary: No Blood Disorders: No Family Medical History Osteoporosis 19 MOTHER No Pertinent Family Hx Physical Exam Vital Signs Vital Signs - First Documented 09/28/18 17:09 Temp 97.6 Pulse 77 Resp 16 B/P (MAP) 140/84 (102) Pulse Ox 94 O2 Delivery Room Air Capillary Refill : Height, Weight, BMI Height: 6'2.00" Weight: 175lbs. 7.0oz. [id number]; 19.3 BMI Method:Stated General Appearance: no apparent distress, cachetic HEENT: normal ENT inspection Neck: normal inspection Cardiovascular: regular rate, rhythm Respiratory: lungs clear Gastrointestinal: normal bowel sounds, non tender, soft Male: normal genitalia; No testicular tenderness Back: normal inspection Extremities: normal range of motion, non-tender, normal inspection Neurologic/Psychiatric: no motor/sensory deficits, alert Skin: normal color, warm/dry; No rash Progress/Results/Core Measures Suspected Sepsis SIRS Temperature: Pulse: Respiratory Rate: Laboratory Tests 09/28/18 17:37: White Blood Count 4.5 Blood Pressure / Mean: Laboratory Tests 09/28/18 17:37: Creatinine 1.00, Platelet Count 166, Total Bilirubin 1.5H Results/Orders Lab Results Laboratory Tests Test 09/28/18 17:29 09/28/18 17:37 Range/Units Urine Color RED H Urine Clarity VERY CLOUDY H Urine pH 5 5-9 Urine Specific [place] 1.020 1.016-1.022 Urine Protein 3+ H NEGATIVE Urine Glucose (UA) NEGATIVE NEGATIVE Urine Ketones 2+ H NEGATIVE Urine Nitrite NEGATIVE NEGATIVE Urine Bilirubin NEGATIVE NEGATIVE Urine Urobilinogen NORMAL NORMAL MG/DL Urine Leukocyte Esterase 1+ H NEGATIVE Urine RBC (Auto) 5+ H NEGATIVE Urine RBC TNTC H /HPF Urine WBC NONE /HPF Urine Squamous Epithelial Cells NONE /HPF Urine Crystals NONE /LPF Urine Bacteria NEGATIVE /HPF Urine Casts NONE /LPF Urine Mucus NEGATIVE /LPF Urine Culture Indicated NO White Blood Count 4.5 4.3-11.0 10^3/uL Red Blood Count 4.73 4.35-5.85 10^6/uL Hemoglobin 13.5 13.3-17.7 G/DL Hematocrit 41 40-54 % Mean Corpuscular Volume 87 80-99 FL Mean Corpuscular Hemoglobin 29 25-34 PG Mean Corpuscular Hemoglobin Concent 33 32-36 G/DL Red Cell Distribution Width 16.1 H 10.0-14.5 % Platelet Count 166 130-400 10^3/uL Mean Platelet Volume 12.2 H 7.4-10.4 FL Neutrophils (%) (Auto) 67 42-75 % Lymphocytes (%) (Auto) 22 12-44 % Monocytes (%) (Auto) 10 0-12 % Eosinophils (%) (Auto) 0 0-10 % Basophils (%) (Auto) 0 0-10 % Neutrophils # (Auto) 3.0 1.8-7.8 X 10^3 Lymphocytes # (Auto) 1.0 1.0-4.0 X 10^3 Monocytes # (Auto) 0.5 0.0-1.0 X 10^3 Eosinophils # (Auto) 0.0 0.0-0.3 10^3/uL Basophils # (Auto) 0.0 0.0-0.1 10^3/uL Sodium Level 142 135-145 MMOL/L Potassium Level 4.3 3.6-5.0 MMOL/L Chloride Level 105 98-107 MMOL/L Carbon Dioxide Level 25 21-32 MMOL/L Anion Gap 12 5-14 MMOL/L Blood Urea Nitrogen 34 H 7-18 MG/DL Creatinine 1.00 0.60-1.30 MG/DL Estimat Glomerular Filtration Rate > 60 BUN/Creatinine Ratio 34 Glucose Level 95 70-105 MG/DL Calcium Level 10.2 H 8.5-10.1 MG/DL Corrected Calcium 10.5 H 8.5-10.1 MG/DL Total Bilirubin 1.5 H 0.1-1.0 MG/DL Aspartate Amino Transf (AST/SGOT) 44 H 5-34 U/L Alanine Aminotransferase (ALT/SGPT) 43 0-55 U/L Alkaline Phosphatase 63 40-136 U/L Total Protein 7.4 6.4-8.2 GM/DL Albumin 3.6 3.2-4.5 GM/DL My Orders Orders - DELROY SUNG MD Catheter(Urinary) Insert & Ass 03,15 (09/28/18 17:14) Cbc With Automated Diff (09/28/18 17:14) Comprehensive Metabolic Panel (09/28/18 17:14) Ua Culture If Indicated (09/28/18 17:14) Vital Signs/I&O 09/28/18 17:09 Temp 97.6 Pulse 77 Resp 16 B/P (MAP) 140/84 (102) Pulse Ox 94 O2 Delivery Room Air Capillary Refill : Progress Note : Time: 17:33 Progress Note Rocha catheter demonstrated hematuria. The urinalysis demonstrated gross blood with leukocytes. Patient was placed on the Bactrim DS twice a day for a week. Patient will be directed for follow-up with his physician upon completion of antibiotics. I think that this is most likely a urinary tract infection but it could be from an occult injury or kidney stone or some other not readily apparent cause. Departure Impression Primary Impression: Hematuria Qualified Codes: R31.9 - Hematuria, unspecified Disposition: 01 HOME, SELF-CARE Condition: Improved Departure-Patient Inst. Decision time for Depature: 18:05 Referrals: RICHY BEAN MD (PCP/Family) Primary Care Physician Patient Instructions: Urinary Tract Infection, Child (DC) Add. Discharge Instructions: Bactrim DS as prescribed. Follow-up with Dr. Bean in a week for recheck. Return if any problems or questions. All discharge instructions reviewed with patient and/or family. Voiced understanding. Scripts Sulfamethoxazole/Trimethoprim (Bactrim Ds Tablet) 1 Each Tablet 1 EACH PO BID for 7 Days, TAB Prov: DELROY SUNG MD 09/28/18 DELROY SUNG MD September 28, 2018 17:21
[2018-09-28 17:38] LABS: BILIRUBIN,URINE NEGATIVE (NEGATIVE); CLARITY,URINE VERY CLOUDY; COLOR,URINE RED; GLUCOSE, URINE (UA) NEGATIVE (NEGATIVE); KETONES,URINE 2+ (NEGATIVE); LEUKOCYTE ESTERASE ,URINE 1+ (NEGATIVE); NITRITE,URINE NEGATIVE (NEGATIVE); PH,URINE 5 (5-9); PROTEIN,URINE 3+ (NEGATIVE); UROBILINOGEN,URINE NORMAL (NORMAL)
[2018-09-28 17:42] LABS: BACTERIA,URINE NEGATIVE /HPF; RBC,URINE TNTC /HPF
[2018-09-28 17:42] LABS: BASOPHILS % (AUTO) 0 % (0-10); EOSINOPHILS % (AUTO) 0 % (0-10); HEMATOCRIT 41 % (40-54); HEMOGLOBIN 13.5 G/DL (13.3-17.7); LYMPHOCYTES % (AUTO) 22 % (12-44); MEAN CORPUSCULAR HEMOGLOBIN 29 PG (25-34); MEAN CORPUSCULAR HGB CONC 33 G/DL (32-36); MEAN CORPUSCULAR VOLUME 87 FL (80-99); MEAN PLATELET VOLUME 12.2 FL (7.4-10.4); MONOCYTES # (AUTO) 0.5 X 10^3 (0.0-1.0); MONOCYTES % (AUTO) 10 % (0-12); NEUTROPHILS % (AUTO) 67 % (42-75); PLATELET COUNT 166 10^3/uL (130-400); RED CELL DISTRIBUTION WIDTH 16.1 % (10.0-14.5); WHITE BLOOD COUNT 4.5 10^3/uL (4.3-11.0)
[2018-09-28 18:00] LABS: ALANINE AMINOTRANSFERASE 43 U/L (0-55); ALBUMIN 3.6 GM/DL (3.2-4.5); ALKALINE PHOSPHATASE 63 U/L (40-136); BILIRUBIN,TOTAL 1.5 MG/DL (0.1-1.0); BUN/CREATININE RATIO 34; CALCIUM 10.2 MG/DL (8.5-10.1); CARBON DIOXIDE 25 MMOL/L (21-32); CHLORIDE 105 MMOL/L (98-107); GFR ESTIMATED > 60; GLUCOSE 95 MG/DL (70-105); POTASSIUM 4.3 MMOL/L (3.6-5.0); SODIUM 142 MMOL/L (135-145); TOTAL PROTEIN 7.4 GM/DL (6.4-8.2)
[2018-09-28] MEDS ORDERED: SULF1TAB35 PO (18:06)
--- NOTE | 2018-09-28 18:13 | NUR ---
PT PULLED OUT IV AND TOOK BREIF OFF. NEW BRIEF PUT ON.
--- NOTE | 2018-09-28 18:15 | NUR ---
[facility] NOTIFIED PT WAS READ[facility] TO BE PICKED [facility].
--- NOTE | 2018-09-28 18:18 | NUR ---
PT ATTEMPTING TO GET OUT OF BED. PT PLACED BACK INTO BED, WARM BLANKETS GIVEN, ET TV TURNED ON.
--- NOTE | 2018-09-28 18:56 | NUR ---
REPORT GIVEN TO
--- NOTE | 2018-09-28 19:04 | NUR ---
[facility] nurse contacted. reguarding pt transportation home.
[2018-09-28 19:10] VITALS: BP 145/92
--- NOTE | 2018-09-28 19:10 | NUR ---
PT RESTING IN BED, DENIES NEEDS, ASSISTED TO REPOSITION.
--- NOTE | 2018-09-28 19:15 | NUR ---
UPDATE PER DYLON KINGSLEY [facility], RIDE FOR PATIENT SHOULD BE HERE APPROX. 20MIN.
[2018-09-28 19:39] VITALS: BP 145/92
== END 2018-09-28 19:41 | disposition home or self-care (01) ==
LOC: ER 17:09 → EDUNIT# 17:09 → ER 19:41
DX: R31.9 Hematuria, unspecified (principal); F03.90 Unspecified dementia, unspecified severity, without behavioral disturbance, psychotic disturbance, mood disturbance, and anxiety; Z87.19 Personal history of other diseases of the digestive system
CPT/HCPCS: 36415; 80053; 81000; 85025